=== PATIENT | male | born 1950 | race Caucasian/White ===

== ENCOUNTER 2023-01-10 15:05 | Outpatient (AMB) | payer BC, SELFPAY ==
--- NOTE | 2023-01-10 15:14 | HO.NEPHOV ---
HPI HPI Comments History of Present Illness Details Sebastian was seen in the office in follow-up of his mild chronic kidney disease. He had been on Zoloft. He occasionally get orthostatic symptoms. He is going through personal family stressors. He has no chest pain, shortness of breath, proximal nocturnal dyspnea, orthopnea, pedal edema, hematuria. He has history of high PSA and is closely followed up. He denies taking nonsteroidal anti-inflammatory medications. He denies high blood sugar or any other recent medication changes. [facility] Medical History Vitreous opacities Vitreous degeneration Raynauds phenomenon Presbyopia Myopia Labile blood pressure Gilbert syndrome Dermatitis Chronic kidney disease Benign neoplasm of large intestine Astigmatism Asthma Allergic rhinitis High prostate specific antigen (PSA) Dyslipidemia Surgical History Personal history of surgery to other organs S/P surgery on nasal septum Family History Mother Diabetes Kidney disease Heart disease Hypertension Father Kidney disease Heart disease Cancer Brother Hypertension Alcohol intake: former Patient Tobacco Use Status: Former Tobacco user Vital Signs 01/10/23 15:16 Height 6 ft 2 in Weight 169 lb 6 oz BMI 21.7 BP 130/70 Blood Pressure Location Lt brachial Position Sitting Pulse 63 Pulse Source Pulse Oximeter Physical Exam Vital Signs: Last Vital Signs Pulse 63 01/10/23 15:16 BP 130/70 01/10/23 15:16 BMI result Body Mass Index 21.7 Const General: comfortable and no acute distress Orientation/consciousness: patient oriented x3 HEENT Head: Yes normocephalic Mouth: Normal oral and palatal mucosa present Eyes EOM: EOMs intact bilaterally Neck Neck: Yes supple Resp Auscultation: clear to auscultation bilaterally Cardio Jugular venous distension: no JVD Rate: regular rate GI Palpation (GI): Soft to palpation Auscultation: normal bowel sounds General: Yes no CVA tenderness Back/Spine/Pelvis Back: no CVA tenderness Skin General skin exam: no rashes or lesions noted Neuro General: patient oriented x3 and moves all extremities Extrem General: Yes no pedal edema Assessment & Plan Assessment & Plan (1) CKD (chronic kidney disease) stage 3, GFR 30-59 ml/min: Code(s): N18.30 - Chronic kidney disease, stage 3 unspecified Qualifiers: Chronic kidney disease stage 3 subtype: stage 3a (GFR 45-59) Qualified Code(s): N18.31 - Chronic kidney disease, stage 3a Plan Sebastian has CKD stage 3 at baseline. His serum creatinine has been stable at 1.3. It had gone up to 1.5 which has settled down now to baseline. He occasionally gets orthostatic symptoms. He is unsure whether it is happening since he was started on Zoloft. He has high PSA. His urine output is good. He does not take any regular nonsteroidal anti-inflammatory medications. He may need midodrine. I have ordered a follow-up renal functions, electrolytes and urine protein creatinine ratio. I did not make any medication changes today. Follow-up appointment was given. All questions answered. Time spent for retrieval of data, documentation and patient encounter 26 minutes. Orders: Orders Electrolytes 01/10/23 N18.30 - Chronic kidney disease, stage 3 unspecified Blood Urea Nitrogen 01/10/23 N18.30 - Chronic kidney disease, stage 3 unspecified Creatinine 01/10/23 N18.30 - Chronic kidney disease, stage 3 unspecified Calcium 01/10/23 N18.30 - Chronic kidney disease, stage 3 unspecified Protein Creatinine Ratio, Ur 01/10/23 N18.30 - Chronic kidney disease, stage 3 unspecified Coding Level of Care Code Est Pt Level 3 (13871) Diagnoses Stage 3a chronic kidney disease N18.31 Chronic kidney disease stage 3 subtype: stage 3a (GFR 45-59)
[2023-01-10 15:16] VITALS: BP 130/70; PULSE 63; BMI 21.7
== END 2023-01-10 15:56 | disposition home or self-care (01) ==
LOC: HO.HKAS 15:05
PROVIDERS: PCP Nurse Practitioner Adult Health; Visit Provider Internal Medicine Nephrology
DX: N18.31 Chronic kidney disease, stage 3a (principal)
CPT/HCPCS: 99213

== ENCOUNTER → 2023-01-10 15:05 | Outpatient (BNVA) | payer BC, SELFPAY | PROVIDERS: PCP Nurse Practitioner Adult Health; Visit Provider Internal Medicine Nephrology ==

== ENCOUNTER 2023-07-14 10:23 | Outpatient (AMB) | payer BC, SELFPAY ==
--- NOTE | 2023-07-14 10:25 | HO.NEPHOV_ITS ---
Vital Signs 07/14/23 10:28 Height 6 ft 2 in Weight 178 lb 2 oz BMI 22.9 BP 128/72 Blood Pressure Location Lt brachial Position Sitting Pulse 76 Pulse Source Pulse Oximeter Pulse Oximetry (%) 99 Oxygen Delivery Method Room Air Intake Visit Reasons: 6 mo fu w/ labs/ Confirmed Combination Welder Required: No Accompanied by: Self / Same As Patient Allergies grass pollen Allergy (Verified 07/14/23 10:30) Itchy Eyes HPI Comments Details: Sebastian was seen in the office in follow-up of his mild chronic kidney disease. He has no chest pain, shortness of breath, proximal nocturnal dyspnea, orthopnea, pedal edema, hematuria. He has history of high PSA and is closely followed up. He had a renal USS which showed right & left kidney of 10.2 cms . There was a upper pole simple cyst on the left kidney. He takes Flomax. He denies taking nonsteroidal anti-inflammatory medications. He denies high blood sugar or any other recent medication changes. [facility] Medical History Vitreous opacities Vitreous degeneration Raynauds phenomenon Presbyopia Myopia Labile blood pressure Gilbert syndrome Dermatitis Chronic kidney disease Benign neoplasm of large intestine Astigmatism Asthma Allergic rhinitis High prostate specific antigen (PSA) Dyslipidemia Surgical History Personal history of surgery to other organs S/P surgery on nasal septum Family History Mother Diabetes Kidney disease Heart disease Hypertension Father Kidney disease Heart disease Cancer Brother Hypertension Social History Alcohol intake: former Patient Tobacco Use Status: Former Tobacco user Physical Exam Vital Signs: Last Vital Signs Pulse 76 07/14/23 10:28 BP 128/72 07/14/23 10:28 Pulse Ox 99 07/14/23 10:28 Oxygen Delivery Method Room Air 07/14/23 10:28 BMI result Body Mass Index 22.9 Const General: comfortable and no acute distress Orientation/consciousness: patient oriented x3 HEENT Head: Yes normocephalic Mouth: Normal oral and palatal mucosa present Eyes EOM: EOMs intact bilaterally Neck Neck: Yes supple Resp Auscultation: clear to auscultation bilaterally Cardio Jugular venous distension: no JVD Rate: regular rate GI Palpation (GI): Soft to palpation Auscultation: normal bowel sounds General: Yes no CVA tenderness Back/Spine/Pelvis Back: no CVA tenderness Skin General skin exam: no rashes or lesions noted Neuro General: patient oriented x3 and moves all extremities Extrem General: Yes no pedal edema Results Reviewed Nephrology Results: No Data to Display Assessment & Plan Assessment & Plan (1) CKD (chronic kidney disease) stage 3, GFR 30-59 ml/min: Code(s): N18.30 - Chronic kidney disease, stage 3 unspecified Category: Medical Qualifiers: Chronic kidney disease stage 3 subtype: stage 3a (GFR 45-59) Qualified Code(s): N18.31 - Chronic kidney disease, stage 3a (2) Renal cyst: Code(s): N28.1 - Cyst of kidney, acquired Category: Medical Plan Sebastian has CKD stage 3 at baseline. His serum creatinine has been stable at 1.3. It had gone up to 1.5 which has settled down now to baseline. He is going to get repeat blood work today. He has high PSA. He follows up with Urologist. His urine output is good. He does not take any regular nonsteroidal anti- inflammatory medications. I have ordered a follow-up renal functions, electrolytes and urine protein creatinine ratio. I did not make any medication changes today. Follow-up appointment was given. All questions answered. Orders: Orders Blood Urea Nitrogen Today N18.31 - Chronic kidney disease, stage 3a Creatinine Today N18.31 - Chronic kidney disease, stage 3a Electrolytes Today N18.31 - Chronic kidney disease, stage 3a Protein Creatinine Ratio, Ur Today N18.31 - Chronic kidney disease, stage 3a Coding Level of Care Code Est Pt Level 4 (11789) Diagnoses Stage 3a chronic kidney disease N18.31 Chronic kidney disease stage 3 subtype: stage 3a (GFR 45-59) Renal cyst N28.1
[2023-07-14 10:28] VITALS: BP 128/72; PULSE 76; O2SAT 99; BMI 22.9
== END 2023-07-14 10:44 | disposition home or self-care (01) ==
PROVIDERS: PCP Nurse Practitioner Adult Health; Visit Provider Internal Medicine Nephrology
DX: N18.31 Chronic kidney disease, stage 3a (principal); N28.1 Cyst of kidney, acquired
CPT/HCPCS: 99214

== ENCOUNTER → 2023-07-14 10:23 | Outpatient (BNVA) | payer BC, SELFPAY | PROVIDERS: PCP Nurse Practitioner Adult Health; Visit Provider Internal Medicine Nephrology ==

== ENCOUNTER 2023-07-14 11:00 | Outpatient (REF) | payer BC, SELFPAY ==
[2023-07-14 13:58] LABS: Anion Gap 14 (12-20); Blood Urea Nitrogen 17 mg/dL (9-16); Carbon Dioxide 27 mmol/L (22-29); Chloride 105 mmol/L (96-108); Estimated Glomerular Filt Rate 58; Potassium 4.2 mmol/L (3.3-5.1); Sodium 142 mmol/L (135-145)
[2023-07-14 14:04] LABS: Creatinine Urine 42.71 mg/dL; Total Protein Urine Random < 7 mg/dL (<12)
== END 2023-07-14 11:01 | disposition home or self-care (01) ==
LOC: HO.10HDL 11:00
PROVIDERS: Visit Provider Internal Medicine Nephrology
DX: N18.31 Chronic kidney disease, stage 3a (principal)
CPT/HCPCS: 36415; 80051; 82565; 82570; 84156; 84520

== ENCOUNTER 2024-02-09 10:33 | Outpatient (AMB) | payer BC, SELFPAY ==
--- NOTE | 2024-02-09 10:41 | HO.NEPHOV_ITS ---
Vital Signs 02/09/24 10:43 Height 6 ft 2 in Weight 171 lb BMI 22.0 BP 132/80 Blood Pressure Location Lt brachial Position Sitting Pulse 77 Pulse Source Pulse Oximeter Pulse Oximetry (%) 97 Oxygen Delivery Method Room Air Intake Visit Reasons: CKD Educational Advisor Required: No Accompanied by: Self / Same As Patient Allergies grass pollen Allergy (Verified 02/09/24 10:43) Itchy Eyes HPI Comments Details: Sebastian was seen in the office in follow-up of his mild chronic kidney disease. He has no chest pain, shortness of breath, proximal nocturnal dyspnea, orthopnea, pedal edema, hematuria. He has history of high PSA and is closely followed up. He had a renal USS which showed right & left kidney of 10.2 cms . There was a upper pole simple cyst on the left kidney. He takes Flomax. He denies taking nonsteroidal anti-inflammatory medications. He denies high blood sugar or any other recent medication changes. [facility] Medical History Vitreous opacities Vitreous degeneration Raynauds phenomenon Presbyopia Myopia Labile blood pressure Gilbert syndrome Dermatitis Chronic kidney disease Benign neoplasm of large intestine Astigmatism Asthma Allergic rhinitis High prostate specific antigen (PSA) Dyslipidemia Surgical History Personal history of surgery to other organs S/P surgery on nasal septum Family History Mother Diabetes Kidney disease Heart disease Hypertension Father Kidney disease Heart disease Cancer Brother Hypertension Social History Alcohol intake: former Patient Tobacco Use Status: Former Tobacco user Review of Systems Const All systems reviewed & are unremarkable except as noted in HPI and below Physical Exam Vital Signs: Last Vital Signs Pulse 77 02/09/24 10:43 BP 132/80 02/09/24 10:43 Pulse Ox 97 02/09/24 10:43 Oxygen Delivery Method Room Air 02/09/24 10:43 BMI result Body Mass Index 22.0 Const General: comfortable and no acute distress Orientation/consciousness: patient oriented x3 HEENT Head: Yes normocephalic Mouth: Normal oral and palatal mucosa present Eyes EOM: EOMs intact bilaterally Neck Neck: Yes supple Resp Auscultation: clear to auscultation bilaterally Cardio Jugular venous distension: no JVD Rate: regular rate GI Palpation (GI): Soft to palpation Auscultation: normal bowel sounds General: Yes no CVA tenderness Back/Spine/Pelvis Back: no CVA tenderness Skin General skin exam: no rashes or lesions noted Neuro General: patient oriented x3 and moves all extremities Extrem General: Yes no pedal edema Assessment & Plan Assessment & Plan (1) CKD (chronic kidney disease) stage 3, GFR 30-59 ml/min: Code(s): N18.30 - Chronic kidney disease, stage 3 unspecified Category: Medical Qualifiers: Chronic kidney disease stage 3 subtype: stage 3a (GFR 45-59) Qualified Code(s): N18.31 - Chronic kidney disease, stage 3a (2) Renal cyst: Code(s): N28.1 - Cyst of kidney, acquired Category: Medical Plan Sebastian has CKD stage 3 at baseline. His serum creatinine has been stable at around 1.2 to 1.3. It had gone up to 1.5 one time which has settled down now to baseline. He has H/O high PSA. He follows up with Urologist. His urine output is good. He does not take any regular nonsteroidal anti-inflammatory medications. I have ordered a follow-up renal functions, electrolytes and urine protein creatinine ratio. I did not make any medication changes today. Follow- up appointment was given. All questions answered. Orders: Orders Creatinine 6 Months N18.31 - Chronic kidney disease, stage 3a, N28.1 - Cyst of kidney, acquired Blood Urea Nitrogen 6 Months N18.31 - Chronic kidney disease, stage 3a, N28.1 - Cyst of kidney, acquired Electrolytes 6 Months N18.31 - Chronic kidney disease, stage 3a, N28.1 - Cyst of kidney, acquired Protein Creatinine Ratio, Ur 6 Months N18.31 - Chronic kidney disease, stage 3a, N28.1 - Cyst of kidney, acquired Coding Level of Care Code Est Pt Level 4 (73135) Diagnoses Stage 3a chronic kidney disease N18.31 Chronic kidney disease stage 3 subtype: stage 3a (GFR 45-59) Renal cyst N28.1
[2024-02-09 10:43] VITALS: BP 132/80; PULSE 77; O2SAT 97; BMI 22.0
--- OUTSIDE RECORDS SUMMARY | 2024-02-09 10:46 | XMS_ITS | Data Portability ---
Author Organization [place] - [facility], Allergy Address [address] [address] Care Team Providers Care Home Hospice Aide Name Role Phone JARRETT KENT Primary Care Provider [phone] Assessment No assessment recorded. Plan of Treatment Reminders Order Date Submit Date Provider Last Modified By Organization Details Last Modified Time Details Appointments Establish ed 30 2024 09:30A M JARRETT Crane MD Not available Not available Not available Lab None recorded. Referral None recorded. Procedures None recorded. Surgeries None recorded. Imaging CT, chest, w/ contrast - I recommend a CT chest to make sure no lesions along course of recurrent laryshows ngeal nerve. Neck CT was normal (with contrast) . [address] [facility], [address] [place], [address], 10/13/2023 11:40:32 Medication Orders budesonid e 0.5 mg/2 mL suspensio n for nebulizat ion 2023 024 [id number], [address] [place], [address], 10/13/2023 11:21:59 Patient TargetsNo targets recorded. Patient InstructionsNo instructions recorded. Reason for Referral None Reported. Results Created Date Observation Date Name Description Value Unit Range Abnormal Flag Note LastModifiedBy Organization Detail LastModifiedTime 10/17/19 24 04/12/2023 imagi ng/di agnos tic resul t No observ ation record ed. [email or web address] Not Available 19:27:36 10/17/1905/02/2023 imagi ng/di agnos tic resul t No observ ation record ed. [email or web address] Not Available 19:27:42 10/17/19 24 02/24/2022 imagi ng/di agnos tic resul t No observ ation record ed. [email or web address] Not Available 19:27:51 11/27/19 24 11/22/2023 CT, chest , w/ contr ast No observ ation record ed. [email or web address] Not Available 10/30 16:18:08 Result Notes None recorded. Problems Name Problem SNOMED Code Status Onset Date Resolution Date Notes Provider Name and Address Organization Details Recorded Time Paralysis of larynx 08431482 Active 2023 Paralysis of vocal cords and larynx, unilateral ; Note: Date Diagnosed: 05/01/2023 4:45 PM (J38.01) Not Available [facility] 02:19:43 Seasonal allergic rhinitis 848240019 Active 2023 Other seasonal allergic rhinitis; Note: Date Diagnosed: 04/04/2023 11:30 AM (J30.2) Not Available [facility] 02:19:51 Disorder of nasal sinus 1440887 Active 2023 Perforatio n of nasal septum NOS; Note: Date Diagnosed: 04/04/2023 11:30 AM (J34.89) Not Available [facility] 02:19:52 Disorder of the nose 08963939 Active 2023 Perforatio n of nasal septum NOS; Note: Date Diagnosed: 04/04/2023 11:30 AM (J34.89) Not Available [facility] 02:19:52 Sensorine ural hearing loss of bilateral ears 260456571 Active 2023 Sensorineu ral hearing loss, bilateral; Note: Date Diagnosed: 07/04/2023 4:08 PM (H90.3) Not Available [facility] 02:20:02 Polyp of nasal cavity 123999160 Active 2023 Polyp of nasal cavity; Note: Date Diagnosed: 04/04/2023 11:30 AM (J33.0) Not Available [facility] 4 02:20:10 Dysphonia 13972551 Active 2023 Dysphonia; Note: Date Diagnosed: 04/04/2023 11:12 AM (R49.0) Not Available [facility] 4 02:20:20 Loss of sense of smell 96384278 Active 2023 JARRETT GALINDO MD [address] [place] [address], [place], [address] , [facility] 4 11:05:23 Paralysis of left vocal cord 039593186 Active 2023 JARRETT GALINDO MD [address] [place] [address], [place], [address] , [facility] 4 11:17:27 Problem Notes None recorded. Procedures Surgical History Date Name Laterality Status Provider Name and Address Organization Details Recorded Time 10/13/2023 NasalEndos copy_DP completed JARRETT GALINDO MD [address] [place] [address], [place], [address], [facility] 10/13/2023 11:21:23 Imaging Results Imaging Date Name Status LastModified by Organiz ation Details LastModified Time 04/12/2023 imaging/diagn ostic result completed Information not available 10/17/2023 19:27:36 05/02/2023 imaging/diagn ostic result completed Information not available 10/17/2023 19:27:42 02/24/2022 imaging/diagn ostic result completed Information not available 10/17/2023 19:27:51 11/22/2023 CT, chest, w/ contrast completed [email or web address] Information not available 11/27/2023 16:18:08 Procedure Notes None recorded. Medical Equipment None Reported. Allergies No known drug allergies Medications Name Sig Start Date Stop Date Status Note LastModified by Organization Details LastModified Time tamsulosin 0.4 mg capsule active Medicatio n ID: [id number] Br and Name: tamsulosi n Send Method: E-Prescri bed Subs Allowed: subs OK Medica tionGener icName: tamsulosi n Not Available Not Available Not Available sertraline 25 mg tablet active Medicatio n ID: [id number] Br and Name: sertralin e Send Method: E-Prescri bed Subs Allowed: subs OK Medica tionGener icName: sertralin e Not Available Not Available Not Available budesonide 0.5 mg/2 mL suspension for nebulizati on INHALE 2 ML BY NEBULIZAT ION ROUTE TWICE A DAY active Not Available Not Available No t Available Vitals Date Recorded Body height Body weight Provider Name and Address Organization Details Last Updated DateTime 10/13/2023 187.96 cm 17423.52 g Sulma Schwarz [place] [facility] 10/13/2023 10:38:07 Social History None recorded. Functional Status None recorded. Mental Status None recorded. Family History Nothing Reported. Medical History Condition Response Allergies/Hayfever Y Hyperlipidemia Y Asthma Y Kidney Disease Y Past Encounters Encounter ID Performer Location Encounter Start Date Encounter Closed Date Diagnosis/Indication Diagnosis SNOMED-CT Code Diagnosis ICD10 Code [id number] JARRETT GALINDO MD [facility] on [address] [place] [address] 10/13/2023 10:27:06 10/13/2023 11:40:31 Dysphonia 43223660 R49.9 Polyp of nasal cavity 73 5159562 J33.0 Loss of se nse of smell 03633375 R43.0 Paralysis of left vocal cord 487911132 J38.01 Health Concerns Section Related Observation LastModified by Organization Detai ls LastModified Time None Recorded Concern Status LastModified by Organization Details LastModified Time None Recorded Advance Directives Directive None Recorded Payers Encounter Date Sequence Insurance Name Policy Number Policy Batres Covered Member ID Batres Member ID Guarantor Name 10/13/[address] [facility]: MEDICARE PPO BLUE (MEDICARE REPLACEMENT PPO) [id number] Krystle Lott [id number] Krystle Lott Notes Date Note Type Note Provider Name and Address Organization Details Recorded Time 10/13/2023 text/html Nasal polyps. Hx of nasal polyps. Using budesonide rinses. Not having facial pain. Notes improved congestion. Sense of smell is diminished. Hx of dysphonia. Hx of possible R VC paralysis which improved on repeat laryngoscopy. Did voice therapy sessions with benefit. He is happy with his current voice. JARRETT GALINDO MD [address] [place] [address], [place], [address], [facility] - [facility] 10/13/2023 11:21:56
== END 2024-02-09 11:08 | disposition home or self-care (01) ==
PROVIDERS: PCP Nurse Practitioner Adult Health; Visit Provider Internal Medicine Nephrology
DX: N18.31 Chronic kidney disease, stage 3a (principal); N28.1 Cyst of kidney, acquired
CPT/HCPCS: 99214

== ENCOUNTER → 2024-02-09 10:33 | Outpatient (BNVA) | payer BC, SELFPAY | PROVIDERS: PCP Nurse Practitioner Adult Health; Visit Provider Internal Medicine Nephrology ==

== ENCOUNTER 2024-04-09 09:24 | Outpatient (AMB) | payer BC, SELFPAY ==
--- NOTE | 2024-04-09 09:29 | MHC.OFFVIS ---
Intake Visit Reasons: 2nd Opinion Prostate Riley/Elevated PSA Intake Note: Patient is present for 2ND OPINION PROSTATE RILEY/ELEVATED PSA Urology Medication:TAMSULOSIN,VITAMIN B12,MIRABEGRON Antibiotic Allergy:NONE Blood Thinner:NONE Back Up Worker Required: No Allergies grass pollen Allergy (Verified 04/09/24 09:30) Itchy Eyes HPI Comments Details: Song is a pleasant male. He is a patient of . He is seen for the following urologic conditions - lower urinary tract symptoms Has progressive urge and frequency PSA 6.4 with free% 33 Based on prostate size and high degree of% free this PSA represents minimal risk Imaging [facility] - CT prostate volume 7.2 x 6.5 x 6.8 = calculated volume 160 g Recommend starting finasteride plus cystoscopy Lower urinary tract symptoms Prior medications include tamsulosin 0.8 mg, Myrbetriq 50 mg PFSH Medical History Vitreous opacities Vitreous degeneration Raynauds phenomenon Presbyopia Myopia Labile blood pressure Gilbert syndrome Dermatitis Chronic kidney disease Benign neoplasm of large intestine Astigmatism Asthma Allergic rhinitis High prostate specific antigen (PSA) Dyslipidemia Surgical History Personal history of surgery to other organs S/P surgery on nasal septum Family History Mother Diabetes Kidney disease Heart disease Hypertension Father Kidney disease Heart disease Cancer Brother Hypertension Social History Alcohol intake: former Patient Tobacco Use Status: Former Tobacco user Review of Systems Const Denies chills and Denies fever(s) Card Reports no additional complaints and Denies syncope Resp Denies cough GI Denies abdominal pain and Denies heartburn Reports as per HPI and Denies change in libido Neuro Denies syncope Psych Denies change in libido Endo Denies change in libido Physical Exam Const General: cooperative, healthy appearing, comfortable and no acute distress Orientation/consciousness: patient oriented x3 HEENT Face and sinus: Yes normal facial exam Mouth: moist mucous membranes Neck Neck: Yes normal visual inspection, Yes full ROM and Yes trachea midline Chest Chest palpation & inspection: normal inspection of the chest Resp Effort & Inspection: normal respiratory effort, able to speak in complete sentences and no respiratory distress GI Inspection: Yes normal to inspection Back/Spine/Pelvis Cervical Spine: normal cervical lordosis Thoracic/Lumbar Spine: thoracic and lumbar spine normal to inspection Skin General skin exam: no rashes or lesions noted Neuro General: patient oriented x3, gait normal, tone normal and moves all extremities Extrem General: Yes normal to inspection and Yes capillary refill normal Assessment & Plan Assessment & Plan (1) BPH loc w urin obs/LUTS: Code(s): N40.1 - Benign prostatic hyperplasia with lower urinary tract symptoms Category: Medical Plan Start finasteride Office cystoscopy Medications: New finasteride 5 mg PO DAILY 90 days 90 tabs 1RF N13.8 - Other obstructive and reflux uropathy, N40.1 - Benign prostatic hyperplasia with lower urinary tract symptoms, R33.9 - Retention of urine, unspecified Patient Instructions: This note is constructed using voice recognition software. While every effort has been made to ensure accuracy investor relations analyst errors may have been included. Imaging studies, laboratory and physical exam results were discussed and reviewed in detail. No major barriers to patient understanding were identified. An opportunity to ask questions regarding the treatment plan was provided. All questions were answered. The patient expressed understanding and agreement with the above treatment plan. The patient is aware they should contact our office by phone for worsening of their current condition or the appearance of new urologic symptoms. Compliance is encouraged with any medications and followup testing that is ordered. It is a privilege to participate in the urologic care of your patient. If you have any questions or concerns regarding treatment for the above conditions, or other urologic issues, please do not hesitate to contact me. The office telephone contact is [phone]. Sincerely, Dr Arnav Huang MD, [facility] - Urology Compassionate Specialist Care for the Genitourinary System Coding Level of Care Code New Pt Level 4 (91127) Diagnoses BPH loc w urin obs/LUTS N40.1
== END 2024-04-09 10:31 | disposition home or self-care (01) ==
PROVIDERS: PCP Nurse Practitioner Adult Health; Visit Provider Urology
DX: N40.1 Benign prostatic hyperplasia with lower urinary tract symptoms (principal)
CPT/HCPCS: 99204

== ENCOUNTER 2024-04-29 10:08 | Outpatient (REF) | payer BC, SELFPAY ==
--- OUTSIDE RECORDS SUMMARY | 2024-04-29 12:16 | XMS_ITS | Clinical Summary ---
Author Organization [facility] Address 100 [facility] [address] [place] [address] Phone Care Team Providers Care Structurer Name Role Phone Janice Garza Primary Care Provider [phone] Allergies Active Allergy Reactions Criticality Noted Date [...] patient's age to complete this topic Insurance [facility] Care Teams Structurer Relationship Specialty Start Date End Date Janice Garza ANP [address] [place] [phone] PCP - General 03/09/20
--- OUTSIDE RECORDS SUMMARY | 2024-04-29 12:16 | XMS_ITS | Continuity of Care Document ---
Author Organization [place] [facility], [facility] Address [address] [facility] [place] [address] Care Team Providers Care Hand Stapler Name Role Phone BEVNAKIAJARRETT Primary Care Provider [phone] Assessment No assessment recorded. Plan of Treatment Reminders Order Date Submit Date Provider Last Modified By Organization Details Last Modified Time Details Appointments None record ed. Lab None record ed. Referral None record ed. Procedures None record ed. Surgeries None record ed. Imaging None record ed. Medication Orders None record ed. Patient TargetsNo targets recorded. Patient InstructionsNo instructions recorded. Reason for Referral None Reported. Results Created Date Observation Date Name Description Value Unit Range Abnormal Flag Note LastModifiedBy Organization Detail LastModifiedTime 04/10/1911/22/2023 CT, chest , w/ contr ast No observ ation record ed. [email or web address] [facility] [address] [place], [address], 04/10/2024 16:03:19 Result Notes None recorded. Problems Name Problem SNOMED Code Status Onset Date Resolution Date Notes Provider Name and Address Organization Details Recorded Time Paralysis of larynx 69389975 Active 2023 Paralysis of vocal cords and larynx, unilateral ; Note: Date Diagnosed: 05/01/2023 4:45 PM (J38.01) Not Available [facility] 4 02:19:43 Seasonal allergic rhinitis 093252202 Active 2023 Other seasonal allergic rhinitis; Note: Date Diagnosed: 04/04/2023 11:30 AM (J30.2) Not Available [facility] 02:19:51 Disorder of nasal sinus 1297153 Active 2023 Perforatio n of nasal septum NOS; Note: Date Diagnosed: 04/04/2023 11:30 AM (J34.89) Not Available [facility] 4 02:19:52 Disorder of the nose 09029559 Active 2023 Perforatio n of nasal septum NOS; Note: Date Diagnosed: 04/04/2023 11:30 AM (J34.89) Not Available [facility] 4 02:19:52 Sensorine ural hearing loss of bilateral ears 363324140 Active 2023 Sensorineu ral hearing loss, bilateral; Note: Date Diagnosed: 07/04/2023 4:08 PM (H90.3) Not Available [facility] 02:20:02 Polyp of nasal cavity 445546639 Active 2023 Polyp of nasal cavity; Note: Date Diagnosed: 04/04/2023 11:30 AM (J33.0) Not Available [facility] 02:20:10 Dysphonia 43439664 Active 2023 Dysphonia; Note: Date Diagnosed: 04/04/2023 11:12 AM (R49.0) Not Available [facility] 4 02:20:20 Loss of sense of smell 24982717 Active 2023 JARRETT GALINDO MD [address] [place] [address], [place], [address] , [facility] - [facility] 4 11:05:23 Paralysis of left vocal cord 294339583 Active 2023 JARRETT GALINDO MD [address] [place] [address], [place], [address] , [facility] - [facility] 4 11:17:27 Problem Notes None recorded. Procedures Surgical History Date Name Laterality Status Provider Name and Address Organization Details Recorded Time 04/08/2024 NasalEndos copy_DP completed JARRETT GALINDO MD [address] [place] [address], [place], [address], [place] [facility] 04/08/2024 10:18:04 10/13/2023 NasalEndos copy_DP completed JARRETT GALINDO MD [address] [place] [address], [address], [facility] - [facility] 10/13/2023 11:21:23 Imaging Results None recorded. Procedure Notes None recorded. Medical Equipment None [...] Available Vitals Date Recorded Body height Body mass index (BMI) Body weight Provider Name and Address Organization Details Last Updated DateTime 04/08/2024 187.96 cm 22.7 kg/m2 16167.85 g Stephanie Guerin [place] [facility] 04/08/2024 09:45:14 Social History None recorded. Functional Status None recorded. Mental Status None recorded. Family History Nothing Reported. Medical History Condition Response Allergies/Hayfever Y Hyperlipidemia Y Asthma Y Kidney Disease Y Past Encounters Encounter ID Performer Location Encounter Start Date Encounter Closed Date Diagnosis/Indication Diagnosis SNOMED-CT Code Diagnosis ICD10 Code Diagnosis Note [id number] JARRETT GALINDO MD [facility] on [address] [place] [address] 04/08/2024 09:15:28 04/08/2024 10:36:28 Dysphonia 97961526 R49.9 I personally reviewed his CT chest which was negative for tumors. 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 I gave reassuranc e. I recommend he continue vocal exercises as his voice is serviceabl e. Polyp of nasal cavity 73 2839853 J33.0 Small. Minimally symptomati c. Recommend continued budesonide irrigation s. Does not need refill. Loss of se nse of smell 88675325 R43.0 due to polyps. continue rinses. Paralysis of left vocal cord 223554978 J38.01 well compensate d. imaging negative. gave reassuranc e. Health Concerns Section Related Observation LastModified by Organization Detai ls LastModified Time None Recorded Concern Status LastModified by Organization Details LastModified Time None Recorded Payers Encounter Date Sequence Insurance Name Policy Number Policy Batres Covered Member ID Batres Member ID Guarantor Name 04/08/2024 1 [facility]: MEDIC[place] PPO BLUE (MEDICARE REPLACEMENT PPO) [id number] Krystle Lott [id number] Krystle Lott Notes Date Note Type Note Provider Name and Address Organization Details Recorded Time 04/08/2024 text/html Hx of nasal polyps. Using [...] was negative as well. JARRETT GALINDO MD [address] [place] [address], [phone], [place] [facility] 04/08/2024 10:19:39
--- OUTSIDE RECORDS SUMMARY | 2024-04-29 12:17 | XMS_ITS | Referral Summary ---
Author Organization [facility] Address [address] [place] [address] Care Team Providers Care Ecological Risk Assessor Name Role Phone Lindsay Romo Primary Care Provider [phone] Social History Tobacco Use Types Packs/Day Years [...] Insurance BCBS MCR REPLACE PPO Care Teams Ecological Risk Assessor Relationship Specialty Start Date End Date Lindsay Romo [address] [place] [phone] PCP - General Internal Medicine 02/14/20
--- OUTSIDE RECORDS SUMMARY | 2024-04-29 12:17 | XMS_ITS | Clinical Summary ---
Author Organization [facility] Address [address] [place] [address] Care Team Providers Care Forest Fire Officer Name Role Phone Lindsay Romo Primary Care Provider [phone] Social History Tobacco Use Types Packs/Day Years [...] Insurance BCBS MCR REPLACE PPO Care Teams Forest Fire Officer Relationship Specialty Start Date End Date Lindsay Romo [address] [place] [phone] PCP - General Internal Medicine 02/14/20
== END 2024-04-29 10:09 | disposition home or self-care (01) ==
LOC: HO.LAB 10:08
PROVIDERS: PCP Nurse Practitioner Adult Health; Visit Provider Urology
DX: N40.1 Benign prostatic hyperplasia with lower urinary tract symptoms (principal); N13.8 Other obstructive and reflux uropathy; N42.9 Disorder of prostate, unspecified
CPT/HCPCS: 51798; 81003

== ENCOUNTER 2024-04-29 10:08 | Outpatient (AMB) | payer BC, SELFPAY ==
--- NOTE | 2024-04-29 10:31 | AM.OFFVISNUR ---
Intake Visit Reasons: urinary retention Allergies grass pollen Allergy (Verified 04/09/24 09:30) Itchy Eyes Office Procedures Post Void Residual Post Residual Void Details: Patient presents to office for PVR after calling to report difficulty with urination as well as inability to void. Bladder scanned for 162mls. Patient was able to void small amount for urinalysis to be run. UA unremarkable for infection. Reviewed with Dr. Huang- send 5mg terazosin daily for patient. Medication sent and patient aware and agreeable. Post Void Residual (PVR): 162 [id number] Void Residual by ultrasound Results AMB Urinalysis, Automated UA Leukoctes 0 Hieu/uL Last Edit by Oscar Ponce LPN on 04/29/24 10:35 UA Nitrite Negative Last Edit by Oscar Ponce LPN on 04/29/24 10:35 UA Urobilinogen 0 mg/dL Last Edit by Oscar Ponce LPN on 04/29/24 10:35 UA Protein 0.1 mg/dL Last Edit by Oscar Ponce LPN on 04/29/24 10:35 UA pH 6.0 Last Edit by Oscar Ponce LPN on 04/29/24 10:35 UA Blood 0 Jake/uL Last Edit by Oscar Ponce LPN on 04/29/24 10:35 UA Specific [place] 1.020 Last Edit by Oscar Ponce LPN on 04/29/24 10:35 UA Ketone Negative Last Edit by Oscar Ponce LPN on 04/29/24 10:35 UA Bilirubin 0 mg/dL Last Edit by Oscar Ponce LPN on 04/29/24 10:35 UA Glucose 0 mg/dL Last Edit by Oscar Ponce LPN on 04/29/24 10:35 Assessment & Plan Assessment & Plan Orders: Orders AMB Post Void Residual by ultrasound Today N40.1 - Benign prostatic hyperplasia with lower urinary tract symptoms, N42.9 - Disorder of prostate, unspecified AMB Urinalysis Automated Today N40.1 - Benign prostatic hyperplasia with lower urinary tract symptoms, N42.9 - Disorder of prostate, unspecified Medications: New terazosin 5 mg PO BEDTIME 30 days 30 caps 1RF Coding CPT Codes Post Residual Void - PVR CPT Code: [id number] Void Residual by ultrasound ([id number])
--- OUTSIDE RECORDS SUMMARY | 2024-04-29 11:37 | XMS_ITS | Referral Summary ---
Author Organization [facility] Address [address] [place] [address] Care Team Providers Care Quill Stripper Name Role Phone Lindsay Romo Primary Care Provider Social History Tobacco Use Types Packs/Day Years Used Date Smoking Tobacco: Never Assessed Sex and Gender Information Value Date Recorded Sex Assigned at Male 06/04/2020 5:32 PM EDT Legal Sex Male 2:22 PM EST Gender Identity Male 06/04/2020 5:32 PM EDT Sexual Orientation Straight 06/04/2020 5: 32 PM EDT Last Filed Vital Signs Vital Sign Reading Time Taken Comments Blood Pressure - - Pulse - - Temperature - - Respiratory Rate - - Oxygen Saturation - - Inhaled Oxygen Concentration - - Weight 74.8 kg (165 lb) 06/05/2020 10:1 7 AM EDT reported home weight Height 189.2 cm (6' 2.5 ) 02/25/2020 10 :58 AM EST Body Mass Index 20.9 02/25/2020 10:58 AM EST Plan of Treatment Not on file Insurance BCBS MCR REPLACE PPO Care Teams Quill Stripper Relationship Specialty Start Date End Date Lindsay Romo [address] [place] [phone] PCP - General Internal Medicine 02/14/20
--- OUTSIDE RECORDS SUMMARY | 2024-04-29 11:37 | XMS_ITS | Clinical Summary ---
Author Organization [facility] Address [address] [place] [address] Care Team Providers Care Nuclear Waste Management Engineer Name Role Phone Lindsay Romo Primary Care Provider [phone] Social History Tobacco Use Types Packs/Day Years [...] 02/25/2020 10:58 AM EST Plan of Treatment Health Maintenance Due Date Last Done Comments Cologuard 1950 FOBT / Fit Test 1950 Hepatitis C Screening 1950 Sigmoidoscopy 1950 Zoster Vaccines (1 of 2) 1999 DTaP,Tdap,and Td Vaccines (1 - Tdap) 04/08/2004 04/07/2004 Pneumococcal Vaccine: 50+ Years (2 of 2 - PCV) 07/25/2012 07/26/2011 COVID-19 Vaccine (1 - 2023- season) 2023 Influenza Vaccine (#1) 2023 , 11/29/2018, 01/13/2016, Additional history exists Alcohol/Substance Use Screening 02/28/2024 Depression Screening and Follow-Up 02/28/2024 Health Care Proxy Review 02/28/2024 Social Drivers of Health Annual Screening 02/28/2024 RSV Vaccine (60+ years old and patients) (1 - 1-dose 75+ series) 2024 Colon Cancer Screening 01/08/2029 Colonoscopy 01/08/2029 01/08/2019 Hepatitis B Vaccines Aged Out No long er eligible based on patient's age to complete this topic Insurance BCBS MCR REPLACE PPO Care Teams Nuclear Waste Management Engineer Relationship Specialty Start Date End Date Lindsay Romo [address] [place] [phone] PCP - General Internal Medicine 02/14/20
--- OUTSIDE RECORDS SUMMARY | 2024-04-29 11:37 | XMS_ITS | Clinical Summary ---
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 Mixed hyperlipidemia 04/16/2020 Chronic kidney disease 04/16/2020 Family History Medical History Relation Comments Hypertension Brother Cancer Father Heart disease Father Kidney disease Father Diabetes Mother Heart disease Mother Hypertension Mother Kidney disease Mother Relation Status Comments Brother Father Other s/p nephrectomy Mother Social History Tobacco Use Types Packs/Day Years Used Date Smoking Tobacco: Former Smokeless Tobacco: Never Tobacco Cessation:Counseling Given: Not Answered Alcohol Use Standard Drinks/Week Comments Not Currently 0 (1 standard drink = 0.6 oz pur e alcohol) Occasional social drink Sex and Gender Information Value Date Recorded Sex Assigned at Not on file Legal Sex Male 5:06 PM EST Gender Identity Not on file Sexual Orientation Not on file Last Filed Vital Signs Vital Sign Reading Time Taken Comments Blood Pressure 120/80 01/03/2022 1:00 PM EST Pulse 76 01/03/2022 1:00 PM EST Temperature - - Respiratory Rate - - Oxygen Saturation 99% 12/22/2020 4:17 PM EDT Inhaled Oxygen Concentration - - Weight 78.6 kg (173 lb 3.2 oz) 01/03/2022 1:00 P M EST Height - - Body Mass Index - - Plan of Treatment Health Maintenance Due Date Last Done Comments Pneumococcal Vaccine: 65+ Ye ars (1 of 2 - PCV) 1955 Colorectal Cancer Screening: Annual FOBT 1998 Colorectal Cancer Screening: Sigmoidoscopy 1998 Influenza Vaccine (#1) 2023 Colorectal Cancer Screening: Colonoscopy 01/08/2029 01/08/2019 Hepatitis B Vaccine Aged Out No longe r eligible based on patient's age to complete this topic Insurance [facility] Care Teams Computer Technician Relationship Specialty Start Date End Date Janice Garza ANP [address] [place] [phone] PCP - General 03/09/20
--- OUTSIDE RECORDS SUMMARY | 2024-04-29 11:37 | XMS_ITS | Data Portability ---
Author Organization [place] [facility], Allergy Address [address] [address] Care Team Providers Care Powerhouse Laborer Name Role Phone JARRETT KENT Primary Care Provider Assessment No assessment recorded. Plan of Treatment Reminders Order Date Submit Date Provider Last Modified By Organization Details Last Modified Time Details Appointments None recorded. Lab None recorded. Referral None recorded. Procedures None recorded. Surgeries None recorded. Imaging CT, chest, w/ contrast - I recommend a CT chest to make sure no lesions along course of recurrent laryshowsng eal nerve. Neck CT was normal (with contrast). 2023 024 [facility], [address] [place], [address], 5 16:03:19 Medication Orders budesonide 0.5 mg/2 mL suspension for nebulizatio n 2023 024 [id number], [address] [place], [address], 4 11:21:59 Patient TargetsNo targets recorded. Patient InstructionsNo instructions recorded. Reason for Referral None Reported. Results Created Date Observation Date Name Description Value Unit Range Abnormal Flag Note LastModifiedBy Organization Detail LastModifiedTime 10/17/19 24 04/12/2023 imagi ng/di agnos tic resul t No observ ation record ed. [email or web address] Not Available 19:27:36 10/17/19 24 05/02/2023 imagi ng/di agnos tic resul t No observ ation record ed. [email or web address] Not Available 19:27:42 10/17/19 24 02/24/2022 imagi ng/di agnos tic resul t No observ ation record ed. [email or web address] Not Available 19:27:51 11/27/19 24 11/22/2023 CT, chest , w/ contr ast No observ ation record ed. [email or web address] Not Available 10/30 16:18:08 04/10/19 25 11/22/2023 CT, chest , w/ contr ast No observ ation record ed. [email or web address] [facility] [address] [facility], [place], [address], 04/10/2024 16:03:19 Result Notes None recorded. Problems Name Problem SNOMED Code Status Onset Date Resolution Date Notes Provider Name and Address Organization Details Recorded Time Paralysis of larynx 16620044 Active 2023 Paralysis of vocal cords and larynx, unilateral ; Note: Date Diagnosed: 05/01/2023 4:45 PM (J38.01) Not Available [facility] 02:19:43 Seasonal allergic rhinitis 138852587 Active 2023 Other seasonal allergic rhinitis; Note: Date Diagnosed: 04/04/2023 11:30 AM (J30.2) Not Available [facility] 02:19:51 Disorder of nasal sinus 6237485 Active 2023 Perforatio n of nasal septum NOS; Note: Date Diagnosed: 04/04/2023 11:30 AM (J34.89) Not Available [facility] 02:19:52 Disorder of the nose 55618087 Active 2023 Perforatio n of nasal septum NOS; Note: Date Diagnosed: 04/04/2023 11:30 AM (J34.89) Not Available [facility] 02:19:52 Sensorine ural hearing loss of bilateral ears 754480038 Active 2023 Sensorineu ral hearing loss, bilateral; Note: Date Diagnosed: 07/04/2023 4:08 PM (H90.3) Not Available [facility] 02:20:02 Polyp of nasal cavity 787559073 Active 2023 Polyp of nasal cavity; Note: Date Diagnosed: 04/04/2023 11:30 AM (J33.0) Not Available [facility] 02:20:10 Dysphonia 25673889 Active 2023 Dysphonia; Note: Date Diagnosed: 04/04/2023 11:12 AM (R49.0) Not Available [facility] 02:20:20 Loss of sense of smell 64827402 Active 2023 JARRETT GALINDO MD [address] [place] [address], [place], [address] , [place] [facility] 11:05:23 Paralysis of left vocal cord 717480768 Active 2023 JARRETT GALINDO MD [address] [place] [address], [facility] [place], [address] , [place] [facility] 11:17:27 Problem Notes None recorded. Procedures Surgical History Date Name Laterality Status Provider Name and Address Organization Details Recorded Time 04/08/2024 NasalEndos copy_DP completed JARRETT GALINDO MD [address] [place] [address], [place], [address], [facility] 04/08/2024 10:18:04 10/13/2023 NasalEndos copy_DP completed JARRETT GALINDO MD [address] [place] [address], [address], [place] [facility] 10/13/2023 11:21:23 Imaging Results Imaging Date Name Status LastModified by Organ [facility] Details LastModified Time 04/12/2023 imaging/diagn ostic result completed Information not available 10/17/2023 19:27:36 05/02/2023 imaging/diagn ostic result completed Information not available 10/17/2023 19:27:42 02/24/2022 imaging/diagn ostic result completed Information not available 10/17/2023 19:27:51 11/22/2023 CT, chest, w/ contrast completed [email or web address] Information not available 11/27/2023 16:18:08 11/22/2023 CT, chest, w/ contrast completed [address] [facility] [address] [place], [address], 04/10/2024 16:03:19 Procedure Notes None recorded. Medical Equipment None Reported. Allergies No known drug allergies Medications Name Sig Start Date Stop Date Status Note LastModified by Organization Details LastModified Time tamsulosin 0.4 mg capsule TAKE 1 CAPSULE BY MOUTH TWICE A DAY active Not Available Not Available No t Available sertraline 25 mg tablet TAKE 1 TABLET BY MOUTH EVERY DAY DIRECTED active Not Available Not Available No t Available budesonide 0.5 mg/2 mL suspension for nebulizatio n INHALE 2 ML BY NEBULIZAT ION ROUTE TWICE A DAY 2024 active Not Available Not Available Not Avai lable bisacodyl 5 mg tablet,elke yed release TAKE 4 TABLETS ORALLY PT HAS INSTRUCTI ONS 1 DAYS 04/08 completed Not Available Not Available Not Available GaviLyte-G 236 gram-22.74 gram-6.74 gram-5.86 gram oral solution USE DIRECTED 04/08 completed Not Available Not Available Not Available Myrbetriq 50 mg tablet,exte nded release TAKE 1 TABLET BY MOUTH EVERY DAY active Not Available Not Available No t Available Vitals Date Recorded Body height Body weight Provider Name and Address Organization Details Last Updated DateTime 10/13/2023 187.96 cm 83404.52 g Sulma Schwarz [place] [facility] 10/13/2023 10:38:07 Date Recorded Body height Body mass index (BMI) Body weight Provider Name and Address Organization Details Last Updated DateTime 04/08/2024 187.96 cm 22.7 kg/m2 12494.85 g Stephanie Guerin [place] [facility] 04/08/2024 09:45:14 Social History None recorded. Functional Status None recorded. Mental Status None recorded. Family History Nothing Reported. Medical History Condition Response Allergies/Hayfever Y Hyperlipidemia Y Asthma Y Kidney Disease Y Past Encounters Encounter ID Performer Location Encounter Start Date Encounter Closed Date Diagnosis/Indication Diagnosis SNOMED-CT Code Diagnosis ICD10 Code Diagnosis Note [id number] JARRETT GALINDO MD [facility] on [address] [place] [phone] 10/13/2023 10:27:06 10/13/2023 11:40:31 Dysphonia 26349633 R49.9 improved with voice therapy. FFL sluggish left cord. I recommend a CT chest to make sure no lesions along course of recurrent laryshowsn geal nerve. Neck CT was normal (with contrast). Polyp of nasal cavity 73 7209807 J33.0 Small. Minimally symptomati c. Recommend continued budesonide irrigation s. I sent a refill. Loss of se nse of smell 73420965 R43.0 due to polyps. continue rinses. Paralysis of left vocal cord 834815390 J38.01 well compensate d. Will order [place] [id number] JARRETT GALINDO MD [facility] on [address] [place] [id number] 04/08/2024 09:15:28 04/08/2024 10:36:28 Dysphonia 88479381 R49.9 I personally reviewed his CT chest which was negative for tumors. 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 I gave reassuranc e. I recommend he continue vocal exercises as his voice is serviceabl e. Polyp of nasal cavity 73 0528948 J33.0 Small. Minimally symptomati c. Recommend continued budesonide irrigation s. Does not need refill. Loss of se nse of smell 76325533 R43.0 due to polyps. continue rinses. Paralysis of left vocal cord 885902212 J38.01 well compensate d. imaging negative. gave reassuranc e. Health Concerns Section Related Observation LastModified by Organization Detai ls LastModified Time None Recorded Concern Status LastModified by Organization Details LastModified Time None Recorded Advance Directives Directive None Recorded Payers Encounter Date Sequence Insurance Name Policy Number Policy Batres Covered Member ID Batres Member ID Guarantor Name 10/13/2023 1 [facility]: MEDICARE PPO BLUE (MEDICARE REPLACEMENT PPO) [id number] Krystle Lott [id number] Krystle Lott 04/08/2024 1 [facility]: MEDICARE PPO BLUE (MEDICARE REPLACEMENT PPO) [id number] Krystle Lott [id number] Krystle Lott Notes Date Note Type [...] with his current voice. JARRETT GALINDO MD [address] [facility],[place] [address], [place], [address], [place] [facility] 10/13/2023 11:21:56 04/08/2024 text/html Hx of nasal polyps. Using budesonide rinses. Not having facial pain. Notes minimal congestion. Sense of smell is diminished. No sinus infections since the last year. Hx of dysphonia. Hx of vocal cord paralysis. Did voice therapy sessions with benefit. He is happy with his current voice. Chest CT 11/20 did not show any tumors. Had neck CT 04/22 with conrast which was negative as well. JARRETT GALINDO MD [address] [facility] [address], [place], [address], [place] [facility] 04/08/2024 10:19:39
== END 2024-04-29 11:28 | disposition home or self-care (01) ==
PROVIDERS: PCP Nurse Practitioner Adult Health; Visit Provider Urology
DX: N40.1 Benign prostatic hyperplasia with lower urinary tract symptoms (principal); N42.9 Disorder of prostate, unspecified

== ENCOUNTER 2024-05-31 13:50 | Outpatient (AMB) | payer BC, SELFPAY ==
--- NOTE | 2024-05-31 14:02 | MHC.OFFVIS ---
Intake Visit Reasons: cysto Intake Note: Patient is present for a cystoscopy Urology Medication:TAMSULOSIN,VITAMIN B12,MIRABEGRON Antibiotic Allergy:NONE Blood Thinner:NONE Cement Truck Driver Required: No Allergies grass pollen Allergy (Verified 05/31/24 14:13) Itchy Eyes HPI Comments Details: Song is a pleasant male. He is a patient of . He is seen for the following urologic conditions - lower urinary tract symptoms On finasteride Here for office cystoscopy Large median lobes Recommend GreenLight laser Lower urinary tract symptoms Prior medications include tamsulosin 0.8 mg, Myrbetriq 50 mg PSA 6.4 with free% 33 Based on prostate size and high degree of% free this PSA represents minimal risk Imaging [facility] - CT prostate volume 7.2 x 6.5 x 6.8 = calculated volume 160 g PFSH Medical History Vitreous opacities Vitreous degeneration Raynauds phenomenon Presbyopia Myopia Labile blood pressure Gilbert syndrome Dermatitis Chronic kidney disease Benign neoplasm of large intestine Astigmatism Asthma Allergic rhinitis High prostate specific antigen (PSA) Dyslipidemia Surgical History Personal history of surgery to other organs S/P surgery on nasal septum Family History Mother Diabetes Kidney disease Heart disease Hypertension Father Kidney disease Heart disease Cancer Brother Hypertension Social History Alcohol intake: former Patient Tobacco Use Status: Former Tobacco user Review of Systems Const Denies chills and Denies fever(s) Card Reports no additional complaints and Denies syncope Resp Denies cough GI Denies abdominal pain and Denies heartburn Reports as per HPI and Denies change in libido Neuro Denies syncope Psych Denies change in libido Endo Denies change in libido Physical Exam Const General: cooperative, healthy appearing, comfortable and no acute distress Orientation/consciousness: patient oriented x3 HEENT Face and sinus: Yes normal facial exam Mouth: moist mucous membranes Neck Neck: Yes normal visual inspection, Yes full ROM and Yes trachea midline Chest Chest palpation & inspection: normal inspection of the chest Resp Effort & Inspection: normal respiratory effort, able to speak in complete sentences and no respiratory distress GI Inspection: Yes normal to inspection Back/Spine/Pelvis Cervical Spine: normal cervical lordosis Thoracic/Lumbar Spine: thoracic and lumbar spine normal to inspection Skin General skin exam: no rashes or lesions noted Neuro General: patient oriented x3, gait normal, tone normal and moves all extremities Extrem General: Yes normal to inspection and Yes capillary refill normal Office Procedures Cystoscopy Consent Discussed risk and benefit or proposed procedure with the patient. Information consent for procedure given to the patient. Discussed technical aspects, risks, benefits and alternatives in full. Addressed all of the patient's questions and concerns regarding the procedure. The patient demonstrated knowledge and understanding. They wish to proceed with this procedure. Preparation The patient was prepped in the usual manner. A side door worker was present and in the room. Genitalia was prepped with betadine solution in a sterile manner. Lidocaine Jelly 2% was placed into the urethra and 16Fr flexible Olympus cystoscope was inserted into the meatus after adequate lubrication. Procedure Cystoscopy performed using a disposable Urovue digital 16 Divehi cystoscope. Meatus circumcised Urethra anterior and posterior urethra normal Prostatic Urethra long prostatic urethra, prominent left median lobe with impingement Bladder examination with retroflexion of cystoscope Bladder Orifices normal shape and position Bladder Capacity median Trabeculations grade 1/2 Cellule Formation small Diverticulum Formation - Mucosal Erythema - Bladder Tumor - [id number] DISPOSABLE SCOPE URO-G FLEXIBLE SCOPE Procedure code (CPT) selection complete Office Meds lidocaine HCl 2 % mucosal jelly in applicator Performing Provider: Arnav Huang MD Performing Location[place] [facility] Administered by: Katy Metz RN on 05/31/24 14:19 Dose Route Admin Location Dispensed Lot Number Expiration Date ND Forging Machine Operator 10 mL intra-urethral 10 mL nitrofurantoin monohydrate/macrocrystals 100 mg capsule Performing Provider: Arnav Huang MD Performing Location[place] [facility] Administered by: Katy Metz RN on 05/31/24 14:19 Dose Route Admin Location Dispensed Lot Number Expiration Date NDC Forging Machine Operator 100 mg PO 1 cap Results AMB Urinalysis, Automated UA Leukoctes 0 Hieu/uL Last Edit by OSKAR Nunez on 05/31/24 16:39 UA Nitrite Negative Last Edit by OSKAR Nunez on 05/31/24 16:39 UA Urobilinogen 0.2 mg/dL Last Edit by OSKAR Nunez on 05/31/24 16:39 UA Protein 15 mg/dL Last Edit by OSKAR Nunez on 05/31/24 16:39 UA pH 5.5 Last Edit by OSKAR Nunez on 05/31/24 16:39 UA Blood 0 Jake/uL Last Edit by OSKAR Nunez on 05/31/24 16:39 UA Specific [place] 1.025 Last Edit by Abad Finnegan CCM on 05/31/24 16:39 UA Ketone Negative Last Edit by OSKAR Nunez on 05/31/24 16:39 UA Bilirubin 0 mg/dL Last Edit by OSKAR Nunez on 05/31/24 16:39 UA Glucose 0 mg/dL Last Edit by [facility] Finnegan [facility] on 05/31/24 16:39 Results Reviewed Results Reviewed: Laboratory Last Values Urine pH (Auto) 5.5 05/31/24 16:38 Specific [place] (Auto) 1.025 05/31/24 16:38 Urine Protein (Auto) 15 mg/dL 05/31/24 16:38 Glucose (UA)(Auto) 0 mg/dL 05/31/24 16:38 Urine Ketones (Auto) Negative 05/31/24 16:38 Urine Blood (Auto) 0 Jake/uL 05/31/24 16:38 Urine Nitrite (Auto) Negative 05/31/24 16:38 Urine Bilirubin (Auto) 0 mg/dL 05/31/24 16:38 Urine Urobilinogen (Auto) 0.2 mg/dL 05/31/24 16:38 Leukocyte Esterase (Auto) 0 Hiue/uL 05/31/24 16:38 Assessment & Plan Assessment & Plan (1) BPH loc w urin obs/LUTS: Code(s): N40.1 - Benign prostatic hyperplasia with lower urinary tract symptoms Category: Medical Plan We discussed the nature of the decision and reasonable options for performing a prostate intervention. Interventions include TURP, GreenLight laser enucleation of the prostate, GreenLight laser ablation of the prostate, transurethral incision of the prostate, and I-Tend prostate procedure. Options such as medical therapy were discussed. The relative uncertainties and benefits related to each alternate procedure were adequately discussed. General surgical risks including, but not limited to, pain, bleeding, infection, myocardial infarction, pulmonary embolus, deep vein thrombosis and cerebrovascular accident which may result in further hospitalization were discussed. Full disclosure of the procedure as well as all major risks, benefits and complications were discussed including but not limited to damage to the urethra or bladder neck, recurrent BPH, retrograde ejaculation, bladder infection, urge, de komal frequency, incomplete emptying, dysuria, remote chance of erectile dysfunction, epididymitis, and meatal stenosis. The success rate of the procedure was discussed. Success of the procedure in the short-term does not necessarily guarantee that long-term success will be maintained. Suitable follow up will need to be maintained. The patient showed understanding of discussion. An opportunity was provided for questions to be answered and wishes to proceed with the following procedure. - GreenLight laser prostatectomy Orders: Orders AMB Cystoscopy Today N40.1 - Benign prostatic hyperplasia with lower urinary tract symptoms, N42.9 - Disorder of prostate, unspecified AMB Urinalysis Automated Today Z13.9 - Encounter for screening, unspecified Patient Instructions: This note is constructed using voice recognition software. While every effort has been made to ensure accuracy zinc plating machine operator errors may have been included. Imaging studies, laboratory and physical exam results were discussed and reviewed in detail. No major barriers to patient understanding were identified. An opportunity to ask questions regarding the treatment plan was provided. All questions were answered. The patient expressed understanding and agreement with the above treatment plan. The patient is aware they should contact our office by phone for worsening of their current condition or the appearance of new urologic symptoms. Compliance is encouraged with any medications and followup testing that is ordered. It is a privilege to participate in the urologic care of your patient. If you have any questions or concerns regarding treatment for the above conditions, or other urologic issues, please do not hesitate to contact me. The office telephone contact is [phone]. Sincerely, Dr Arnav Huang MD, [facility] - Urology Compassionate Specialist Care for the Genitourinary System Coding Level of Care Code Est Pt Level 4 (65046) Diagnoses BPH loc w urin obs/LUTS N40.1 CPT Codes Cystoscopy - CPT: [id number] ([id number])
--- OUTSIDE RECORDS SUMMARY | 2024-05-31 15:37 | XMS_ITS | Clinical Summary ---
Author Organization [facility] Address [address] [facility] [address] [place] [address] Phone Care Team Providers Care Naval Aircrewman Name Role Phone Janice Garza Primary Care Provider [phone] Allergies Active Allergy Reactions Criticality Noted Date [...] patient's age to complete this topic Insurance [facility] Care Teams Naval Aircrewman Relationship Specialty Start Date End Date Janice Garza ANP [address] [place] [phone] PCP - General 03/09/20
--- OUTSIDE RECORDS SUMMARY | 2024-05-31 15:37 | XMS_ITS | Clinical Summary ---
Author Organization [facility] Address [address] [place] [address] Care Team Providers Care Sales Representative Raw Fibers Name Role Phone Lindsay Romo Primary Care Provider [phone] Social History Tobacco Use Types Packs/Day Years [...] PCV) 07/25/2012 07/26/2011 COVID-19 Vaccine (1 - season) 2023 Alcohol/Substance Use Screening 02/28/2024 Depression Screening and Follow-Up 02/28/2024 Health Care Proxy Review 02/28/2024 Social Drivers of Health Annual Screening 02/28/2024 RSV Vaccine (60+ years old and patients) (1 - 1-dose 75+ series) 2024 Influenza Vaccine (Season Ended) 2024 12/30/2019, 11/29/2018, 01/13/2016, Additional history exists Colon Cancer Screening 01/08/2029 Colonoscopy 01/08/2029 01/08/2019 Hepatitis B Vaccines Aged Out No long er eligible based on patient's age to complete this topic Insurance BCBS MCR REPL[employer] PPO Care Teams Sales Representative Raw Fibers Relationship Specialty Start Date End Date Lindsay Romo [address] [place] [phone] PCP - General Internal Medicine 02/14/20
--- OUTSIDE RECORDS SUMMARY | 2024-05-31 15:37 | XMS_ITS | Referral Summary ---
Author Organization [facility] Address [address] [place] [id number] Care Team Providers Care Bottle Blowing Machine Tender Name Role Phone Lindsay Romo Primary Care Provider [phone] Social History Tobacco Use Types Packs/Day Years [...] Insurance BCBS MCR REPLACE PPO Care Teams Bottle Blowing Machine Tender Relationship Specialty Start Date End Date Lindsay Romo [address] [place] [phone] PCP - General Internal Medicine 02/14/20
== END 2024-05-31 15:02 | disposition home or self-care (01) ==
LOC: HO.HUSH 13:51
PROVIDERS: PCP Nurse Practitioner Adult Health; Visit Provider Urology
DX: N42.9 Disorder of prostate, unspecified (principal); N40.1 Benign prostatic hyperplasia with lower urinary tract symptoms; Z13.9 Encounter for screening, unspecified
CPT/HCPCS: 52000; 99214

== ENCOUNTER → 2024-05-31 13:50 | Outpatient (BNVA) | payer BC, SELFPAY | PROVIDERS: PCP Nurse Practitioner Adult Health; Visit Provider Urology | DX: N40.1 Benign prostatic hyperplasia with lower urinary tract symptoms (principal) | CPT/HCPCS: 52000; 81003 ==

== ENCOUNTER 2024-08-12 10:45 | Day surgery (SDC) | payer MEDICARE, SELFPAY ==
--- OUTSIDE RECORDS SUMMARY | 2024-08-01 15:07 | XMS_ITS | Clinical Summary ---
Author Organization [facility] Address [address] [facility] [address] [place] [address] Phone Care Team Providers Care Patrol Sergeant Name Role Phone Janice Garza Primary Care Provider [phone] Allergies Active Allergy Reactions Criticality Noted Date [...] Due Date Last Done Comments Pneumococcal Vaccine: 50+ Ye ars (1 of 2 - PCV) 1968 Colorectal Cancer Screening: Annual FOBT 1998 Colorectal Cancer Screening: Sigmoidoscopy 1998 Influenza Vaccine (Season Ended) 2024 Colorectal Cancer Screening: Colonoscopy 01/08/2029 01/08/2019 Hepatitis B Vaccine Aged Out No longe r eligible based on patient's age to complete this topic Insurance [facility] Care Teams Patrol Sergeant Relationship Specialty Start Date End Date Janice Garza ANP [address] [place] [phone] PCP - General 03/09/20
[2024-08-08 09:30] VITALS: BMI 22.5
--- NOTE | 2024-08-09 09:12 | HO.ANESPROP2 ---
Documented by User: Renae Rincon NP 08/09/24 09:37 HPI - Anesthesia Eval Consult details Narrative: 74yo M for Laser Ablation Prostate w/Green Light Follows Dr Cao for CKD. Baseline creat 1.2-1.3. Stable at 01/2024 office visit PMF Active Problems Active Problems: All Active Problems BPH loc w urin obs/LUTS (Acute) Prostatic disease (Acute) Renal cyst (Acute) CKD (chronic kidney disease) stage 3, GFR 30-59 ml/min (Acute) Past Medical History Medical History Skin cancer Sinus congestion Anxiety White coat syndrome with hypertension Vitreous opacities Vitreous degeneration Raynauds phenomenon Presbyopia Myopia Labile blood pressure Gilbert syndrome Dermatitis Chronic kidney disease Benign neoplasm of large intestine Astigmatism Asthma Allergic rhinitis High prostate specific antigen (PSA) Dyslipidemia Family History Family History Mother Diabetes Kidney disease Heart disease Hypertension Father Kidney disease Heart disease Cancer Brother Hypertension Surgical History Surgical History Hx of cataract extraction H/O colonoscopy History of uvulopalatopharyngoplasty Hx of excision of mass S/P surgery on nasal septum Social History Social History Are you a primary palliative care nurse practitioner to a significant other at home: No Do you presently have visiting nurse or other home services: No Alcohol intake: former Patient Tobacco Use Status: Former Tobacco user Tobacco use type: Cigarette Years Smoked: 10 Use of substances other than those prescribed or required for medical reasons: No Have you been hit, kicked, punched, or otherwise hurt by someone within the past year? If so, by whom?: No Spiritual Healthcare Practices: no Scientologist Healthcare Practices: no Cultural Healthcare Practices: no Are you DNR?: No Advance Directives Information Provided: Yes (as above noted) Advance Directives on File: No Poor oral hygiene: No Meds Allergies Allergy/AdvReac Type Severity Reaction Status Date / Time grass pollen Allergy Intermediate Itchy Eyes Verified 08/12/24 10:59 Home Medications ?Medication ?Instructions ?Recorded ?Confirmed ?Last Taken ?Type cholecalciferol (vitamin D3) 25 25 mcg PO DAILY 01/10/23 08/12/24 Unknown History mcg (1,000 unit) tablet sertraline 25 mg tablet 25 mg PO DAILY 01/10/23 08/12/24 Unknown History budesonide 0.5 mg/2 mL suspension 0.5 mg inhalation DAILY 07/14/23 08/12/24 08/12/24 History for nebulization cyanocobalamin (vitamin B-12) 1,000 mcg PO DAILY 07/14/23 08/12/24 Unknown History 1,000 mcg capsule tamsulosin 0.4 mg capsule 0.4 mg PO BID 07/14/23 08/12/24 Unknown History mirabegron 50 mg tablet,extended 50 mg PO DAILY 02/09/24 08/12/24 Unknown History release 24 hr (Myrbetriq) finasteride 5 mg tablet 5 mg PO QAM 08/08/24 08/12/24 08/12/24 History lorazepam 0.5 mg tablet 0.5 - 1 mg PO DIRECTED 08/08/24 08/12/24 Unknown History Exam Height,Weight and Vital Signs: Height 6 ft 2 in Weight 79.379 kg Pertinent Lab Results Pertinent Lab Results: BMP 02/2024 OK except Creat elevated at 1.4 Assessment and Plan Assessment Anesthesia Assessment: Chart Reviewed Documented by User: Ladonna Vásquez MD 08/12/24 12:50 [facility] Past Medical History Medical History Skin cancer Sinus congestion Anxiety White coat syndrome with hypertension Vitreous opacities Vitreous degeneration Raynauds phenomenon Presbyopia Myopia Labile blood pressure Gilbert syndrome Dermatitis Chronic kidney disease Benign neoplasm of large intestine Astigmatism Asthma Allergic rhinitis High prostate specific antigen (PSA) Dyslipidemia Family History Family History Mother Diabetes Kidney disease Heart disease Hypertension Father Kidney disease Heart disease Cancer Brother Hypertension Surgical History Surgical History Hx of cataract extraction H/O colonoscopy History of uvulopalatopharyngoplasty Hx of excision of mass S/P surgery on nasal septum History of Problems with Anesthesia: No Social History Social History Are you a primary palliative care nurse practitioner to a significant other at home: No Do you presently have visiting nurse or other home services: No Alcohol intake: former Patient Tobacco Use Status: Former Tobacco user Tobacco use type: Cigarette Years Smoked: 10 Use of substances other than those prescribed or required for medical reasons: No Have you been hit, kicked, punched, or otherwise hurt by someone within the past year? If so, by whom?: No Spiritual Healthcare Practices: no Scientologist Healthcare Practices: no Cultural Healthcare Practices: no Are you DNR?: No Advance Directives Information Provided: Yes (as above noted) Advance Directives on File: No Poor oral hygiene: No Meds Allergies Allergy/AdvReac Type Severity Reaction Status Date / Time grass pollen Allergy Intermediate Itchy Eyes Verified 08/12/24 10:59 Home Medications ?Medication ?Instructions ?Recorded ?Confirmed ?Last Taken ?Type cholecalciferol (vitamin D3) 25 25 mcg PO DAILY 01/10/23 08/12/24 Unknown History mcg (1,000 unit) tablet sertraline 25 mg tablet 25 mg PO DAILY 01/10/23 08/12/24 Unknown History budesonide 0.5 mg/2 mL suspension 0.5 mg inhalation DAILY 07/14/23 08/12/24 08/12/24 History for nebulization cyanocobalamin (vitamin B-12) 1,000 mcg PO DAILY 07/14/23 08/12/24 Unknown History 1,000 mcg capsule tamsulosin 0.4 mg capsule 0.4 mg PO BID 07/14/23 08/12/24 Unknown History mirabegron 50 mg tablet,extended 50 mg PO DAILY 02/09/24 08/12/24 Unknown History release 24 hr (Myrbetriq) finasteride 5 mg tablet 5 mg PO QAM 08/08/24 08/12/24 08/12/24 History lorazepam 0.5 mg tablet 0.5 - 1 mg PO DIRECTED 08/08/24 08/12/24 Unknown History Exam Airway Mallampati Class: III TM Dist: >3cm Neck ROM: Full Loose/Missing/Broken Teeth: No Heart: RRR Lungs: CTA Assessment and Plan Assessment Anesthesia Assessment: Anesthesia Plan Discussed Final Anesthetic Review History of Problems with Anesthesia: No NPO: Yes ASA Class: II Final Preanesthetic Review: Meds/Allgs Chart Reviewed, Consent Obtained/Reviewed and Anes Risks/Benef Reviewed Patient Risk: Low Procedure Risk: Low Anesthetic Plan Anesthetic Plan: GA Disposition: Standard PACU
[2024-08-12] VITALS (7 sets, daily range): BP systolic 132–170; BP diastolic 73–98; PULSE 52–81; RESP 16–20; TEMP 36.6–36.7; O2SAT 96–100; BMI 22.5
[2024-08-12] MEDS: Lactated Ringers 1,000 ML 100 ML IVCONT (11:37)
--- NOTE | 2024-08-12 12:55 | MHC.SHP ---
Pre-Procedural Eval Section A - 24 Hr Update-Section A only Date of Service: 08/12/24 The patient is an INPATIENT: No Changes since office visit: No Cold of Flu in the past 2 weeks, No New Medical Problems, No Changes in Medication and No Patient answered all questions The patient has been examined within 24 hours of the surgical procedure. The History & Physical has been completed within 30 days and I have reviewed it.: Yes Section B - Complete if H&P > 30 days Chief Complaint: Benign prostatic hyperplasia without lower urinary Allergies: Allergies Allergy/AdvReac Type Severity Reaction Status Date / Time grass pollen Allergy Intermediate Itchy Eyes Verified 08/12/24 10:59 Plan Diagnosis/Plan: Unchanged (GreenLight laser prostatectomy) I have reviewed the history and physical and performed a pertinent physical examination on my patient. No changes have occurred unless specified. Time Spent With Patient Time: Total time managing care of this patient today ____ minutes.
[2024-08-12] MEDS: levoFLOXacin/D5W 500 MG/100 ML PIGGYBACK 100 MG IV (13:00)
--- NOTE | 2024-08-12 14:28 | W.PM.OPN ---
Operative Note Operative Note Date of Service: 08/12/24 Narrative: PreOperative Diagnosis: Bladder outlet obstruction Post Operative Diagnosis: Bladder outlet obstruction Procedure: GreenLight Laser Enucleation of the prostate CPT 84637 Surgeon: Dr Arnav Huang Anesthesia: General History of bladder outlet obstruction. Treated with alpha-dory and other medications. Still with symptoms. On cystoscopy in office has trilobar with primarily lateral impingement. Imaging showed 150 g prostate. Recommendation for prostate procedure with laser enucleation of prostate. Risks and benefits have been discussed. Focus was placed on development of retrograde ejaculation which is a normal part of this procedure. Procedure: After informed consent was verified the patient was brought to the operating room and placed in a supine position. Anesthesia was administered per protocol. Patient was placed in modified dorsal lithotomy position and prepped and draped in a sterile fashion. Safety pause time-out was confirmed. Antibiotics have been given. A Twenty-four [place]an laser cystoscope was inserted per urethra. No abnormalities were found of the anterior and bulbar urethra. The prostatic urethra shows lateral lobe crowding. The bladder was examined and both ureteric orifices were seen in their normal positions away from the area of interest. Bladder trabeculation grade 2. Using a GreenLight laser with initial settings of 80 salazar incisions were made at the 5 and 7 o'clock position. The incisions were taken down from the bladder neck down to the area just proximal of the veru. These were gradually deepened in order to define the lateral aspects of the median lobe area. The deep boundary of enucleation was defined by the prostate surgical capsule. Once clearly defined the grooves were extended in the lateral directions in order to create a deep groove. The median lobe was then ablated and enucleated tissue released into the bladder with the laser power increased to 120 W. small median lobe Once the median lobe area had been cleared, attention was directed to the lateral lobes. Starting with the patient's left lateral lobe. First the 05:00 o'clock groove was further developed. This was moved in the lateral direction to undermine the tissue on the lateral side running from the bladder neck to the prostate apex. The ureteric orifice was used to guide incisions. The laser fiber was placed at the 1 o'clock position and a secondary groove was developed down to the level of prostatic capsule. The creation of a second deep groove defined a segment of intervening tissue similar to a slice of orange. At the apex of the prostate the laser was used to vertically link the two grooves releasing the intervening tissue and creating a segment of tissue. This tissue was then removed with a combination of enucleation and ablation working from the apex toward the bladder neck. A similar procedure was repeated on the patient's right-hand side. The only differences being the position of the lateral groove at he 7 o'clock position and the secondary groove at the 11 o'clock position, Otherwise the procedure was developed in a mirror fashion. Laser power 120 w. Each side was long and the tangerine technique was used to split each lateral side into smaller remnants. After the majority of tissue had been debulked remnant tissue was ablated with the side fire laser and the curve of the prostate followed up each side wall clearly defining the anterior remnant strip that remained between the 11 and 1 o'clock positions. At completion debris and pieces of prostate were removed from the bladder with irrigation. Both ureteric orifices were reviewed again in shown to be patent in away from any areas of energy damage. The apical area was reviewed and any stray mucosal ooze was controlled. A 22 [place] 30 cc balloon Ponce catheter was placed into the bladder using a flexible stylet. Clear efflux was obtained upon irrigation with a Tarik piston syringe. 60 cc was placed in the balloon and gentle traction was placed. A snap was used to hold tension on the catheter to control bleeding during patient moved and transported. A drainage bag was placed. Once transportation is complete to the PACU the snap will be removed. The patient tolerated the procedure well, he was extubated in the operating and transferred in a stable condition to the recovery area. Total Power 278 kJ Lasing time 41:02 Pathology: Prostate tissue Drains: Ponce catheter
== END 2024-08-12 16:12 | disposition home or self-care (01) ==
PROVIDERS: PCP Nurse Practitioner Adult Health; Visit Provider Urology
PROC: (CPT 52648; principal; 2024-08-12 13:00)
DX: N40.1 Benign prostatic hyperplasia with lower urinary tract symptoms (principal); N13.8 Other obstructive and reflux uropathy; N42.9 Disorder of prostate, unspecified; I73.00 Raynaud's syndrome without gangrene; E80.4 Gilbert syndrome; E78.5 Hyperlipidemia, unspecified; R09.89 Other specified symptoms and signs involving the circulatory and respiratory systems; N18.9 Chronic kidney disease, unspecified; J45.909 Unspecified asthma, uncomplicated; Z91.048 Other nonmedicinal substance allergy status; Z98.890 Other specified postprocedural states; Z87.891 Personal history of nicotine dependence
CPT/HCPCS: 52649; 88305; J1100; J1885; J1956; J2003; J2405; J2704; J3010

== ENCOUNTER → 2024-08-12 10:45 | Outpatient (BNV) | payer MEDICARE, SELFPAY | PROVIDERS: PCP Nurse Practitioner Adult Health; Visit Provider Urology | DX: N32.0 Bladder-neck obstruction (principal) | CPT/HCPCS: 52649 ==

== ENCOUNTER → 2024-08-14 10:18 | Outpatient (BNVA) | payer BC, SELFPAY | PROVIDERS: PCP Nurse Practitioner Adult Health; Visit Provider Urology | DX: N40.1 Benign prostatic hyperplasia with lower urinary tract symptoms (principal) | CPT/HCPCS: 51700; 51798 ==

== ENCOUNTER → 2024-08-15 13:08 | Outpatient (BNVA) | payer BC, SELFPAY | PROVIDERS: PCP Nurse Practitioner Adult Health; Visit Provider Urology | DX: N40.1 Benign prostatic hyperplasia with lower urinary tract symptoms (principal); N42.9 Disorder of prostate, unspecified | CPT/HCPCS: 51700; 51702; 51798 ==

== ENCOUNTER → 2024-08-27 08:47 | Outpatient (BNVA) | payer BC, SELFPAY | PROVIDERS: PCP Nurse Practitioner Adult Health; Visit Provider Urology | DX: Z46.6 Encounter for fitting and adjustment of urinary device (principal); N40.1 Benign prostatic hyperplasia with lower urinary tract symptoms | CPT/HCPCS: 51700; 51702; 51798 ==

== ENCOUNTER 2024-09-24 09:29 | Outpatient (AMB) | payer BC, SELFPAY ==
--- NOTE | 2024-09-24 09:30 | A.OFFVIS_ITS ---
Intake Visit Reasons: Greenlight follow up/ [place] Intake Note: Patient is present for a green light laser follow up Pathology report 08/12/24 PVR :330mls Urology Medication:TAMSULOSIN,FINASTERIDE,MIRABEGRON Antibiotic Allergy:NONE Blood Thinner:NONE Jacquard Loom Weaver Required: No Accompanied by: Other Relationship Allergies grass pollen Allergy (Intermediate, Verified 09/24/24 09:34) Itchy Eyes HPI Comments Details: Song is a pleasant male. He is a patient of . He is seen for the following urologic conditions - lower urinary tract symptoms Completed GreenLight laser Failed voiding trial x2 Again today failed voiding trial with 300 cc residual Start Myrbetriq Start bethanechol Four week follow-up repeat voiding to Lower urinary tract symptoms Prior medications include tamsulosin 0.8 mg, Myrbetriq 50 mg PSA 6.4 with free% 33 Based on prostate size and high degree of% free this PSA represents minimal risk Imaging [facility] - CT prostate volume 7.2 x 6.5 x 6.8 = calculated volume 160 g PFSH Medical History Skin cancer Sinus congestion Anxiety White coat syndrome with hypertension Vitreous opacities Vitreous degeneration Raynauds phenomenon Presbyopia Myopia Labile blood pressure Gilbert syndrome Dermatitis Chronic kidney disease Benign neoplasm of large intestine Astigmatism Asthma Allergic rhinitis High prostate specific antigen (PSA) Dyslipidemia Surgical History Hx of cataract extraction H/O colonoscopy History of uvulopalatopharyngoplasty Hx of excision of mass S/P surgery on nasal septum Family History Mother Diabetes Kidney disease Heart disease Hypertension Father Kidney disease Heart disease Cancer Brother Hypertension Social History Are you a primary director day care center to a significant other at home: No Do you presently have visiting nurse or other home services: No Alcohol intake: former Patient Tobacco Use Status: Former Tobacco user Tobacco use type: Cigarette Years Smoked: 10 Review of Systems Const Denies chills and Denies fever(s) Card Reports no additional complaints and Denies syncope Resp Denies cough GI Denies abdominal pain and Denies heartburn Reports as per HPI and Denies change in libido Neuro Denies syncope Psych Denies change in libido Endo Denies change in libido Physical Exam Const General: cooperative, healthy appearing, comfortable and no acute distress Orientation/consciousness: patient oriented x3 HEENT Face and sinus: Yes normal facial exam Mouth: moist mucous membranes Neck Neck: Yes normal visual inspection, Yes full ROM and Yes trachea midline Chest Chest palpation & inspection: normal inspection of the chest Resp Effort & Inspection: normal respiratory effort, able to speak in complete senten michelle and no respiratory distress GI Inspection: Yes normal to inspection Back/Spine/Pelvis Cervical Spine: normal cervical lordosis Thoracic/Lumbar Spine: thoracic and lumbar spine normal to inspection Skin General skin exam: no rashes or lesions noted Neuro General: patient oriented x3, gait normal, tone normal and moves all extremities Extrem General: Yes normal to inspection and Yes capillary refill normal Office Procedures Bladder/Catheter Procedure Details: Patient presents to office for voiding trial. 120mls sterile water instilled through catheter, patient tolerated well. Removed 18 fr barlow catheter, patient tolerated removal well. Patient not able to void. Patient had appointment with Dr. Huang who stated that he would need catheter placed again as bladder scan was 330mls. Inserted 18fr barlow catheter 10ml balloon blue plug, patient tolerated insertion well. New night time urine bag given to patient as well. Patient to make 4 week appointment with nursing for catheter change. 37474-Qpcxitusjp of Bladder 24259-Fyvron Temporary Bladder Catheter Procedure code (CPT) selection complete Post Void Residual Post Residual Void Post Void Residual (PVR): 330 12234-Kora Void Residual by ultrasound Assessment & Plan Assessment & Plan (1) BPH loc w urin obs/LUTS: Code(s): N40.1 - Benign prostatic hyperplasia with lower urinary tract symptoms Category: Medical (2) Urinary retention with incomplete bladder emptying: Code(s): R33.9 - Retention of urine, unspecified Category: Medical Plan Add bethanechol 4 week follow-up Orders: Orders AMB Bladder/Catheter Procedure Today N40.1 - Benign prostatic hyperplasia with lower urinary tract symptoms AMB Post Void Residual by ultrasound Today N40.1 - Benign prostatic hyperplasia with lower urinary tract symptoms Medications: New bethanechol chloride 50 mg PO BID 60 tabs 1RF 30 days N39.0 - Urinary tract infection, site not specified, N40.1 - Benign prostatic hyperplasia with lower urinary tract symptoms Patient Instructions: This note is constructed using voice recognition software. While every effort has been made to ensure accuracy tanner rotary drum continuous process errors may have been included. Imaging studies, laboratory and physical exam results were discussed and reviewed in detail. No major barriers to patient understanding were identified. An opportunity to ask questions regarding the treatment plan was provided. All questions were answered. The patient expressed understanding and agreement with the above treatment plan. The patient is aware they should contact our office by phone for worsening of their current condition or the appearance of new urologic symptoms. Compliance is encouraged with any medications and followup testing that is ordered. It is a privilege to participate in the urologic care of your patient. If you have any questions or concerns regarding treatment for the above conditions, or other urologic issues, please do not hesitate to contact me. The office telephone contact is [phone]. Sincerely, Dr Arnav Huang MD, [facility] - Urology Compassionate Specialist Care for the Genitourinary System Coding Level of Care Code Est Pt Level 4 (89699) Diagnoses BPH loc w urin obs/LUTS N40.1 Urinary retention with incomplete bladder emptying R33.9 CPT Codes Bladder/Catheter Procedure - CPT: 35451-Wpeqevbhnq of Bladder ([id number]) Bladder/Catheter Procedure - CPT: 93963-Gjghmu Temporary Bladder Catheter ([id number]) Post Residual Void - PVR CPT Code: 29930-Dmrc Void Residual by ultrasound ([id number])
--- OUTSIDE RECORDS SUMMARY | 2024-09-24 10:01 | XMS_ITS | Data Portability ---
Author Organization [place] - [facility], Allergy Address [address] [facility] [address] [place] [phone] Care Team Providers Care Email Production Consultant Name Role Phone JARRETT KENT Primary Care [...] CT was normal (with contrast). 2023 024 [facility], [address] [place], [address], 5 16:03:19 Medication Orders budesonide 0.5 mg/2 mL suspension for nebulizatio n 2023 024 [id number], [address] [place], [address], 4 11:21:59 Patient TargetsNo targets recorded. Patient [...] Available 19:27:42 10/17/19 24 02/24/2022 imagi ng/di kettyos tic resul t No observ ation record ed. [email or web address] Not Available 19:27:51 11/27/19 24 11/22/2023 CT, chest , w/ contr ast No observ ation record ed. [email or web address] Not Available 10/30 16:18:08 04/10/19 25 11/22/2023 CT, chest , w/ contr ast No observ ation record ed. [email or web address] [facility] [address] [facility], [place], [address], 04/10/2024 16:03:19 Result Notes None recorded. Problems Name Problem SNOMED Code Status Onset Date Resolution Date Notes Provider Name and Address Organization Details Recorded Time Seasonal allergic rhinitis 037083111 Active 2023 Other seasonal allergic rhinitis; Note: Date Diagnosed: 04/04/2023 11:30 AM (J30.2) Not Available [facility] 02:19:51 Disorder of nasal sinus 7016860 Active 2023 Perforatio n of nasal septum NOS; Note: Date Diagnosed: 04/04/2023 11:30 AM (J34.89) Not Available [facility] 02:19:52 Disorder of the nose 29249413 Active 2023 Perforatio n of nasal septum NOS; Note: Date Diagnosed: 04/04/2023 11:30 AM (J34.89) Not Available [facility] 02:19:52 Polyp of nasal cavity 687002489 Active 2023 Polyp of nasal cavity; Note: Date Diagnosed: 04/04/2023 11:30 AM (J33.0) Not Available [facility] 02:20:10 Dysphonia 11073568 Active 2023 Dysphonia; Note: Date Diagnosed: 04/04/2023 11:12 AM (R49.0) Not Available [facility] 02:20:20 Paralysis of larynx 45547945 Active 2023 Paralysis of vocal cords and larynx, unilateral ; Note: Date Diagnosed: 05/01/2023 4:45 PM (J38.01) Not Available [facility] 02:19:43 Sensorine ural hearing loss of bilateral ears 308255046 Active 2023 Sensorineu ral hearing loss, bilateral; Note: Date Diagnosed: 07/04/2023 4:08 PM (H90.3) Not Available [facility] 02:20:02 Loss of sense of smell 26679641 Active 2023 JARRETT GALINDO MD [address] [place] [address], [facility], [address] , [facility] 11:05:23 Paralysis of left vocal cord 486088576 Active 2023 JARRETT GALINDO MD [address] [place] [address], [facility], [address] , [facility] 11:17:27 Problem Notes None recorded. Procedures Surgical History Date Name Laterality Status Provider Name and Address Organization Details Recorded Time 04/08/2024 NasalEndos copy_DP completed JARRETT GALINDO MD [address] [place] [address], [place], [address], [facility] 04/08/2024 10:18:04 10/13/2023 NasalEndos copy_DP completed JARRETT GALINDO MD [address] [place] [address], [phone], [facility] 10/13/2023 11:21:23 Imaging Results None recorded. Procedure [...] Updated DateTime 04/08/2024 187.96 cm 22.7 kg/m2 43808.85 g Stephanie Guerin [place] - [facility] 04/08/2024 09:45:14 Date Recorded Body height Body weight Provider Name and Address Organization Details Last Updated DateTime 10/13/2023 187.96 cm 59839.52 g Sulma Schwarz [place] - [facility] 10/13/2023 10:38:07 Social History None recorded. Functional Status None recorded. Mental Status None recorded. Family History Nothing Reported. Medical History Condition Response Allergies/Hayfever Y Hyperlipidemia Y Asthma Y Kidney Disease Y Past Encounters Encounter ID Performer Location Encounter Start Date Encounter Closed Date Diagnosis/Indication Diagnosis SNOMED-CT Code Diagnosis ICD10 Code Diagnosis Note [id number] JARRETT GALINDO MD [facility] on [address] [place] [id number] 10/13/2023 10:27:06 10/13/2023 11:40:31 Dysphonia 61952139 R49.9 improved with voice therapy. FFL sluggish left cord. I recommend a CT chest to make sure no lesions along course of recurrent laryshowsn geal nerve. Neck CT was normal (with contrast). Polyp of nasal cavity 73 9393784 J33.0 Small. Minimally symptomati c. Recommend continued budesonide irrigation s. I sent a refill. Loss of se nse of smell 50059274 R43.0 due to polyps. continue rinses. Paralysis of left vocal cord 566329321 J38.01 well compensate d. Will order chest [place] [id number] JARRETT GALINDO MD [facility] on [address] [place] [address] 04/08/2024 09:15:28 04/08/2024 10:36:28 Dysphonia 93830775 R49.9 I personally reviewed his CT chest which was negative for tumors. 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 I gave reassuranc e. I recommend he continue vocal exercises as his voice is serviceabl e. Polyp of nasal cavity 73 1208682 J33.0 Small. Minimally symptomati c. Recommend continued budesonide irrigation s. Does not need refill. Loss of se nse of smell 98560124 R43.0 due to polyps. continue rinses. Paralysis of left vocal cord 343492497 J38.01 well compensate d. imaging negative. gave reassuranc e. Health Concerns Section Related Observation LastModified by Organization Detai ls LastModified Time None Recorded Concern Status LastModified by Organization Details LastModified Time None Recorded Advance Directives Directive None Recorded Payers Insurance Date Sequence Insurance Name Policy Number Policy Batres Covered Member ID Batres Member ID Guarantor Name 04/08/2024 1 [employer]: MEDICARE PPO BLUE (MEDICARE REPLACEMENT PPO) [id number] Krystle Lott [id number] Krystle Lott
--- OUTSIDE RECORDS SUMMARY | 2024-09-24 10:01 | XMS_ITS | Referral Summary ---
Author Organization [facility] Address [address] [place] [id number] Care Team Providers Care Manufacturing Operator Name Role Phone Lindsay Romo Primary Care Provider [phone] Social History Tobacco Use Types Packs/Day Years [...] Insurance BCBS MCR REPLACE PPO Care Teams Manufacturing Operator Relationship Specialty Start Date End Date Lindsay Romo [address] [place] [phone] PCP - General Internal Medicine 02/14/20
--- OUTSIDE RECORDS SUMMARY | 2024-09-24 10:01 | XMS_ITS | Clinical Summary ---
Author Organization [facility] Address [address] [facility] [address] [place] [address] Phone Care Team Providers Care Information Systems Security Analyst Name Role Phone Janice Garza Primary Care Provider [phone] Allergies Active Allergy Reactions Criticality Noted Date [...] Cancer Screening: Sigmoidoscopy 1998 Influenza Vaccine (#1) 2024 Colorectal Cancer Screening: Colonoscopy 01/08/2029 01/08/2019 Hepatitis B Vaccine Aged Out No longe r eligible based on patient's age to complete this topic Insurance [facility] Care Teams Information Systems Security Analyst Relationship Specialty Start Date End Date Janice Garza ANP [address] [place] [phone] PCP - General 03/09/20
--- OUTSIDE RECORDS SUMMARY | 2024-09-24 10:01 | XMS_ITS | Encounter Summary ---
Author Organization [facility] Address [address] [facility] [facility] [address] [place] [address] Phone Care Team Providers Care Reeler Operator Name Role Phone Julio Baca MD Primary Care Provider [phone] Janice Garza NP Primary Care Provider [phone] Encounter Details Date Type Department Care Team (Latest Contact Info) Description 04/22/2023 Transcribe Orders Virtual Department [address] [place] [phone] Destin Figueredo PA [address] [place] [phone] Benign prostatic hyperplasia with lower urinary tract symptoms, symptom details unspecified (Primary Dx) Social History Tobacco Use Types Packs/Day Years Used Date Smoking Tobacco: Former Smokeless Tobacco: Never Alcohol Use Standard Drinks/Week Comments Not Currently 0 (1 standard drink = 0.6 oz pur e alcohol) very rare Education Answer Date Recorded Are you interested in more education? Not on marleny e 06/24/2022 Are you concerned about learning? Not on file 06/24/2022 No 06/24/2022 No 06/24/2022 Digital Access Answer Date Recorded No 07/23/2022 No 07/23/2022 Reliable internet access at home? Not on file 07/23/2022 Device with a working camera? Not on file Sex and Gender Information Value Date Recorded Sex Assigned at Not on file Legal Sex Male 10:03 PM EDT Gender Identity Not on file Sexual Orientation Not on file documented as of this encounter Plan of Treatment Not on file documented as of this encounter Results * US Kidneys and Bladder (04/28/2023 9:30 AM EST) Anatomical Region Laterality Modality Abdomen, Kidney Ultrasound 04/28/2023 6:40 PM EST Impressions 04/28/2023 6:40 PM EST 1. Narrative 04/28/2023 6:40 PM EST US KIDNEYS AND BLADDER TECHNIQUE: Kidney Ultrasound. COMPARISON: None FINDINGS: Right Kidney: Size: 10.2 cm Normal. No stones or hydronephrosis. Left Kidney: Size: 10.2 cm 2.5 cm upper pole simple cyst. No stones or hydronephrosis. Bladder: Prevoid bladder volume 95 cc. Post void bladder volume 4 cc Procedure Note Beny Winkler MD, [facility] - 04/28/2023 US KIDNEYS AND BLADDER TECHNIQUE: Kidney Ultrasound. COMPARISON: None FINDINGS: Right Kidney: Size: 10.2 cm Normal. No stones or hydronephrosis. Left Kidney: Size: 10.2 cm 2.5 cm upper pole simple cyst. No stones or hydronephrosis. Bladder: Prevoid bladder volume 95 cc. Post void bladder volume 4 cc IMPRESSION: 1. Destin ZEPEDA IMG US RENAL Final Result documented in this encounter Visit Diagnoses Diagnosis Benign prostatic hyperplasia with lower urinary tract symptoms, symptom details unspecified- Primary Benign prostatic hyperplasia with lower urinary tract symptoms, symptom details unspecified documented in this encounter Care Teams Reeler Operator Relationship Specialty Start Date End Date Julio Baca MD [email or web address] PCP - General 01/08/19 06/19/23 Janice Garza NP [address] [place] [phone] PCP - General Nurse Practitioner 06/20/23 documented as of this encounter Additional Source Comments The information contained in this document represents components of the legal health record. It is not the complete legal health record.[facility]
== END 2024-09-24 10:31 | disposition home or self-care (01) ==
LOC: HO.HUSH 09:29
PROVIDERS: PCP Nurse Practitioner Adult Health; Visit Provider Urology
DX: N40.1 Benign prostatic hyperplasia with lower urinary tract symptoms (principal); R33.9 Retention of urine, unspecified
CPT/HCPCS: 99024

== ENCOUNTER → 2024-09-24 09:29 | Outpatient (BNVA) | payer BC, SELFPAY | PROVIDERS: PCP Nurse Practitioner Adult Health; Visit Provider Urology | DX: N40.1 Benign prostatic hyperplasia with lower urinary tract symptoms (principal); R33.8 Other retention of urine; Z98.890 Other specified postprocedural states | CPT/HCPCS: 51700; 51798 ==

== ENCOUNTER 2024-10-18 15:26 | Outpatient (AMB) | payer BC, SELFPAY ==
--- OUTSIDE RECORDS SUMMARY | 2024-10-18 15:28 | XMS_ITS | Clinical Summary ---
Author Organization [facility] Address [address] [place] [address] Care Team Providers Care Sample Prep Technician Name Role Phone Lindsay Romo Primary Care Provider [phone] Social History Tobacco Use Types Packs/Day Years [...] - 1-dose 75+ series) 2024 Influenza Vaccine (#1) 2024 0, 11/29/2018, 01/13/2016, Additional history exists Colon Cancer Screening 01/08/2029 Colonoscopy 01/08/2029 01/08/2019 Hepatitis B Vaccines Aged Out No long er eligible based on patient's age to complete this topic Insurance BCBS MCR REPLACE PPO Care Teams Sample Prep Technician Relationship Specialty Start Date End Date Lindsay Romo [address] [place] [phone] PCP - General Internal Medicine 02/14/20
--- OUTSIDE RECORDS SUMMARY | 2024-10-18 15:28 | XMS_ITS | Clinical Summary ---
Author Organization [facility] Address [address] [facility] [address] [place] [address] Phone Care Team Providers Care Mechanical Tech Name Role Phone Janice Garza Primary Care Provider [phone] Allergies Active Allergy Reactions Criticality Noted Date [...] patient's age to complete this topic Insurance [facility] Care Teams Mechanical Tech Relationship Specialty Start Date End Date Janice Garza ANP [address] [place] [phone] PCP - General 03/09/20
--- NOTE | 2024-10-18 15:30 | HO.NEPHOV ---
Vital Signs 10/18/24 15:33 Height 6 ft 2 in Weight 173 lb 8 oz BMI 22.3 BP 130/80 Blood Pressure Location Rt brachial Position Sitting Pulse 81 Pulse Source Pulse Oximeter Pulse Oximetry (%) 97 Oxygen Delivery Method Room Air Intake Visit Reasons: CKD-Conf Assistant Food Service Director Required: No Accompanied by: Self / Same As Patient Allergies grass pollen Allergy (Intermediate, Verified 10/18/24 15:33) Itchy Eyes HPI Comments Details: Sebastian was seen in the office in follow-up of his mild chronic kidney disease. He has no chest pain, shortness of breath, proximal nocturnal dyspnea, orthopnea, pedal edema, hematuria. He has history of high PSA and is closely followed up. He had a renal USS which showed right & left kidney of 10.2 cms . There was a upper pole simple cyst on the left kidney. He takes Flomax. He denies taking nonsteroidal anti-inflammatory medications. He denies high blood sugar or any other recent medication changes. [facility] Medical History Skin cancer Sinus congestion Anxiety White coat syndrome with hypertension Vitreous opacities Vitreous degeneration Raynauds phenomenon Presbyopia Myopia Labile blood pressure Gilbert syndrome Dermatitis Chronic kidney disease Benign neoplasm of large intestine Astigmatism Asthma Allergic rhinitis High prostate specific antigen (PSA) Dyslipidemia Surgical History Hx of cataract extraction H/O colonoscopy History of uvulopalatopharyngoplasty Hx of excision of mass S/P surgery on nasal septum Family History Mother Diabetes Kidney disease Heart disease Hypertension Father Kidney disease Heart disease Cancer Brother Hypertension Social History Are you a primary home visit field care manager to a significant other at home: No Do you presently have visiting nurse or other home services: No Alcohol intake: former Patient Tobacco Use Status: Former Tobacco user Tobacco use type: Cigarette Years Smoked: 10 Review of Systems Const All systems reviewed & are unremarkable except as noted in HPI and below Physical Exam Vital Signs: Last Vital Signs Pulse 81 10/18/24 15:33 BP 130/80 10/18/24 15:33 Pulse Ox 97 10/18/24 15:33 Oxygen Delivery Method Room Air 10/18/24 15:33 BMI result Body Mass Index 22.3 Const General: comfortable and no acute distress Orientation/consciousness: patient oriented x3 HEENT Head: Yes normocephalic Mouth: Normal oral and palatal mucosa present Eyes EOM: EOMs intact bilaterally Neck Neck: Yes supple Resp Auscultation: clear to auscultation bilaterally Cardio Jugular venous distension: no JVD Rate: regular rate GI Palpation (GI): Soft to palpation Auscultation: normal bowel sounds General: Yes no CVA tenderness Back/Spine/Pelvis Back: no CVA tenderness Skin General skin exam: no rashes or lesions noted Neuro General: patient oriented x3 and moves all extremities Extrem General: Yes no pedal edema Assessment & Plan Assessment & Plan (1) CKD (chronic kidney disease) stage 3, GFR 30-59 ml/min: Code(s): N18.30 - Chronic kidney disease, stage 3 unspecified Category: Medical Qualifiers: Chronic kidney disease stage 3 subtype: stage 3a (GFR 45-59) Qualified Code(s): N18.31 - Chronic kidney disease, stage 3a (2) Renal cyst: Code(s): N28.1 - Cyst of kidney, acquired Category: Medical Plan Sebastian has CKD stage 3 at baseline. His serum creatinine had been stable at around 1.2 to 1.3. He follows up with Urologist. ( S/P surgery and still has a Ponce). His urine output is good. He does not take any regular nonsteroidal anti-inflammatory medications. I have ordered a follow-up renal functions, electrolytes and urine protein creatinine ratio. I did not make any medication changes today. Follow-up appointment was given. All questions answered. Orders: Orders Creatinine 6 Months N18.31 - Chronic kidney disease, stage 3a, N28.1 - Cyst of kidney, acquired Blood Urea Nitrogen 6 Months N18.31 - Chronic kidney disease, stage 3a, N28.1 - Cyst of kidney, acquired Electrolytes 6 Months N18.31 - Chronic kidney disease, stage 3a, N28.1 - Cyst of kidney, acquired Coding Level of Care Code Est Pt Level 4 (03711) Diagnoses Stage 3a chronic kidney disease N18.31 Chronic kidney disease stage 3 subtype: stage 3a (GFR 45-59) Renal cyst N28.1
[2024-10-18 15:33] VITALS: BP 130/80; PULSE 81; O2SAT 97; BMI 22.3
== END 2024-10-18 16:04 | disposition home or self-care (01) ==
LOC: HO.HKA 15:26
PROVIDERS: PCP Nurse Practitioner Adult Health; Visit Provider Internal Medicine Nephrology
DX: N18.31 Chronic kidney disease, stage 3a (principal); N28.1 Cyst of kidney, acquired
CPT/HCPCS: 99214

== ENCOUNTER → 2024-10-22 09:38 | Outpatient (BNVA) | payer BC, SELFPAY | PROVIDERS: PCP Nurse Practitioner Adult Health; Visit Provider Urology | DX: N40.1 Benign prostatic hyperplasia with lower urinary tract symptoms (principal); R33.9 Retention of urine, unspecified | CPT/HCPCS: 51700 ==

== ENCOUNTER 2024-12-06 10:35 | Outpatient (REF) | payer BC, SELFPAY | END 2024-12-06 10:36 | disposition home or self-care (01) | LOC: HO.LAB 10:35 | PROVIDERS: PCP Nurse Practitioner Adult Health; Visit Provider Urology | DX: N40.1 Benign prostatic hyperplasia with lower urinary tract symptoms (principal); N39.0 Urinary tract infection, site not specified; A49.9 Bacterial infection, unspecified; N13.8 Other obstructive and reflux uropathy; R33.8 Other retention of urine | CPT/HCPCS: 51798; 81003; 87086; 87088; 87186 ==

== ENCOUNTER 2024-12-06 10:35 | Outpatient (AMB) | payer BC, SELFPAY ==
--- NOTE | 2024-12-06 10:42 | MHC.OFFVIS ---
Intake Visit Reasons: Follow up Intake Note: patient presents today for: follow up urology medications: bethanechol, finasteride, tamsulosin blood thinners: none today's PVR: 120mls Director Of Diagnostic Imaging Required: No Accompanied by: Son Allergies grass pollen Allergy (Intermediate, Verified 12/06/24 10:44) Itchy Eyes HPI Comments Details: Song is a pleasant male. He is a patient of . He is seen for the following urologic conditions - lower urinary tract symptoms Current medications include bethanechol, finasteride PVR 120 cc UA positive nitrites plan urine culture Did not tolerate bethanechol Continue finasteride Antibiotics Add vitamin-C Lower urinary tract symptoms Prior medications include tamsulosin 0.8 mg, Myrbetriq 50 mg PSA 6.4 with free% 33 Based on prostate size and high degree of% free this PSA represents minimal risk Imaging [facility] - [place] prostate volume 7.2 x 6.5 x 6.8 = calculated volume 160 g 08/21 GreenLight laser with postprocedure retention PFSH Medical History Skin cancer Sinus congestion Anxiety White coat syndrome with hypertension Vitreous opacities Vitreous degeneration Raynauds phenomenon Presbyopia Myopia Labile blood pressure Gilbert syndrome Dermatitis Chronic kidney disease Benign neoplasm of large intestine Astigmatism Asthma Allergic rhinitis High prostate specific antigen (PSA) Dyslipidemia Surgical History Hx of cataract extraction H/O colonoscopy History of uvulopalatopharyngoplasty Hx of excision of mass S/P surgery on nasal septum Family History Mother Diabetes Kidney disease Heart disease Hypertension Father Kidney disease Heart disease Cancer Brother Hypertension Social History Are you a primary careers counsellor to a significant other at home: No Do you presently have visiting nurse or other home services: No Alcohol intake: former Patient Tobacco Use Status: Former Tobacco user Tobacco use type: Cigarette Years Smoked: 10 Review of Systems Const Denies chills and Denies fever(s) Card Reports no additional complaints and Denies syncope Resp Denies cough GI Denies abdominal pain and Denies heartburn Reports as per HPI and Denies change in libido Neuro Denies syncope Psych Denies change in libido Endo Denies change in libido Physical Exam Const General: cooperative, healthy appearing, comfortable and no acute distress Orientation/consciousness: patient oriented x3 HEENT Face and sinus: Yes normal facial exam Mouth: moist mucous membranes Neck Neck: Yes normal visual inspection, Yes full ROM and Yes trachea midline Chest Chest palpation & inspection: normal inspection of the chest Resp Effort & Inspection: normal respiratory effort, able to speak in complete sentences and no respiratory distress GI Inspection: Yes normal to inspection Back/Spine/Pelvis Cervical Spine: normal cervical lordosis Thoracic/Lumbar Spine: thoracic and lumbar spine normal to inspection Skin General skin exam: no rashes or lesions noted Neuro General: patient oriented x3, gait normal, tone normal and moves all extremities Extrem General: Yes normal to inspection and Yes capillary refill normal Assessment & Plan Assessment & Plan (1) BPH loc w urin obs/LUTS: Code(s): N40.1 - Benign prostatic hyperplasia with lower urinary tract symptoms Category: Medical (2) Urinary retention with incomplete bladder emptying: Code(s): R33.9 - Retention of urine, unspecified Category: Medical (3) Complicated urinary tract infection: Code(s): N39.0 - Urinary tract infection, site not specified Category: Medical Plan Antibiotics, vitamin-C Six-month follow-up Medications: New ascorbic acid (vitamin C) 1,000 mg PO DAILY 90 tabs 1RF 90 days N39.0 - Urinary tract infection, site not specified sulfamethoxazole-trimethoprim 800-160 mg (Bactrim DS) 1 tab PO BID 14 tabs 0RF 7 days N39.0 - Urinary tract infection, site not specified Discontinued bethanechol chloride Discontinued Reason: Patient Completed Course 50 mg PO BID 90 tabs 0RF N39.0 - Urinary tract infection, site not specified, N40.1 - Benign prostatic hyperplasia with lower urinary tract symptoms Patient Instructions: This note is constructed using voice recognition software. While every effort has been made to ensure accuracy glass installer technician errors may have been included. Imaging studies, laboratory and physical exam results were discussed and reviewed in detail. No major barriers to patient understanding were identified. An opportunity to ask questions regarding the treatment plan was provided. All questions were answered. The patient expressed understanding and agreement with the above treatment plan. The patient is aware they should contact our office by phone for worsening of their current condition or the appearance of new urologic symptoms. Compliance is encouraged with any medications and followup testing that is ordered. It is a privilege to participate in the urologic care of your patient. If you have any questions or concerns regarding treatment for the above conditions, or other urologic issues, please do not hesitate to contact me. The office telephone contact is [phone]. Sincerely, Dr Arnav Huang MD, [facility] - Urology Compassionate Specialist Care for the Genitourinary System Coding Level of Care Code Est Pt Level 4 (91046) Complex EM visit Add On G2211 Diagnoses BPH loc w urin obs/LUTS N40.1 Urinary retention with incomplete bladder emptying R33.9 Complicated urinary tract infection N39.0
== END 2024-12-06 11:27 | disposition home or self-care (01) ==
LOC: HO.HUSH 10:35
PROVIDERS: PCP Nurse Practitioner Adult Health; Visit Provider Urology
DX: N40.1 Benign prostatic hyperplasia with lower urinary tract symptoms (principal); R33.9 Retention of urine, unspecified; N39.0 Urinary tract infection, site not specified; Z13.9 Encounter for screening, unspecified
CPT/HCPCS: 99214